=== PATIENT | male | born 1960 | race African-American/Black ===

== ENCOUNTER 2016-11-20 01:45 | Emergency (ER) | payer OTHER, MEDICAID ==
[~2016-11-20] VITALS: Ht 177.8 cm; Wt 81.6 kg
[2016-11-20 02:11] VITALS: BP 137/79
--- NOTE | 2016-11-20 02:26 | NUR ---
AMBULATED TO ER BED 4
--- NOTE | 2016-11-20 02:27 | NUR ---
Patient being evaluated by physician at bedside.
[2016-11-20] MEDS ORDERED: KETOROLAC 30 MG/ML VIAL IVP ONE (02:35)
[2016-11-20 02:53] LABS: BASOPHILS # (AUTO) 0.3 K/uL (0.00-0.22); BASOPHILS % (AUTO) 3.3 % (0.0-2.0); EOSINOPHILS # (AUTO) 0.2 K/uL (0-0.4); EOSINOPHILS % (AUTO) 2.9 % (0.0-4.0); HEMATOCRIT 41.8 % (36-52); HEMOGLOBIN 13.5 g/dL (12.0-18.0); LYMPHOCYTES # (AUTO) 1.9 K/uL (2.0-11.5); MEAN CORPUSCULAR HEMOGLOBIN 30 pg (27-31); MEAN CORPUSCULAR HGB CONC 32 g/dL (33-37); MEAN CORPUSCULAR VOLUME 93 fL (80-94); MONOCYTES # (AUTO) 1.3 K/uL (0.8-1.0); NEUTROPHILS # (AUTO) 4.3 K/uL (1.8-7.7); NEUTROPHILS % (AUTO) 53.3 % (42.2-75.2); PLATELET COUNT (AUTO) 174 K/uL (140-450); RED BLOOD CELL COUNT(AUTO) 4.51 MIL/uL (4.20-6.10); RED CELL DISTRIBUTION WIDTH 13.9 % (11.6-13.7)
[2016-11-20 02:53] LABS: APPEARANCE,URINE SL CLOUDY (CLEAR); BILIRUBIN,URINE NEGATIVE (NEGATIVE); COLOR,URINE YELLOW (YELLOW); LEUKOCYTE ESTERASE ,URINE NEGATIVE (NEGATIVE); NITRITE, URINE NEGATIVE (NEGATIVE); PROTEIN,URINE NEGATIVE (NEGATIVE); UGLUCOSE NEGATIVE (NEGATIVE); UROBILINOGEN,URINE 0.2 EU/dL (0.2 - 1)
--- NOTE | 2016-11-20 03:05 | NUR ---
PATIENT PRESENTS TO ED WITH LLQ ABD PAIN . PT STATES NOTHING HAS CHANGED ABOUT THE PAIN SINCE IT STARTED A MONTH AGO, AND THAT IS WHY HE DECIDED TO COME IN THIS MORNING . DENIES V/D; SKIN IS PINK/WARM/DRY; AAOX4 WITH EVEN AND STEADY GAIT; LUNGS CLEAR BL; HR EVEN AND REGULAR; PT DENIES ANY FEVER, CP, SOB, OR COUGH AT THIS TIME; PATIENT STATES PAIN OF 8/10 AT THIS TIME; VSS; PATIENT POSITIONED FOR COMFORT; HOB ELEVATED; BEDRAILS UP X2; BED DOWN. ER MD MADE AWARE OF PT STATUS.
[2016-11-20 03:09] LABS: BACTERIA,URINE None Seen /HPF (None Seen); BLOOD, URINE NEGATIVE (NEGATIVE); RBC,URINE 0-5 (RARE) /HPF (0-5); SQUAMOUS EPITHELIAL CELL,UR 0-3 (FEW) /LPF (0-3 (FEW)); WBC,URINE 0-5 (RARE) /HPF (0-5)
[2016-11-20 03:12] LABS: ALBUMIN 3.6 g/dL (3.4-5.0); CARBON DIOXIDE 30.6 mmol/L (21-32); CREATININE 1.2 mg/dL (0.6-1.3); TOTAL BILIRUBIN 0.8 mg/dL (0.0-1.0)
[2016-11-20 03:18] LABS: MONOCYTES % (AUTO) 16.5 % (1.7-9.3)
[2016-11-20 03:41] LABS: ANION GAP 8.9 (8-16); POTASSIUM 3.5 mmol/L (3.5-5.1)
--- NOTE | 2016-11-20 03:59 | NUR ---
PT TO CT
[2016-11-20 05:14] VITALS: BP 133/83
--- NOTE | 2016-11-20 05:14 | NUR ---
Patient discharged with v/s stable. Written and verbal after care instructions given and explained. Patient alert, oriented and verbalized understanding of instructions. Ambulatory with steady gait. All questions addressed prior to discharge. ID band removed. Patient advised to follow up with PMD. Rx of MOTRIN AND ZOFRAN given. Patient educated on indication of medication including possible reaction and side effects. Opportunity to ask questions provided and answered.
--- NOTE | 2016-11-20 05:14 | NUR ---
IV removed, catheter intact and site benign. Applied folded 4x4 gauze and tape to stop bleeding.
== END 2016-11-20 05:14 | disposition home or self-care (01) ==
LOC: MED 01:45
DX: G89.29 Other chronic pain (principal); R10.31 Right lower quadrant pain; F17.210 Nicotine dependence, cigarettes, uncomplicated; Z71.6 Tobacco abuse counseling; Z88.0 Allergy status to penicillin
CPT/HCPCS: 36415; 74176; 80053; 81001; 83690; 85025; 96374; 99285; J1885

== ENCOUNTER 2017-01-07 18:58 | Emergency (ER) | payer OTHER, MEDICAID ==
[~2017-01-07] VITALS: Ht 177.8 cm; Wt 82.1 kg
[2017-01-07 19:54] VITALS: BP 119/78
--- NOTE | 2017-01-07 20:58 | NUR ---
PT TAKEN TO FAST TRACK
--- NOTE | 2017-01-07 20:59 | NUR ---
PT BIB SELF C/O HEADACHES, BODY ACHES, FEVER, AND COUGH X 2 DAYS. DENIES ANY SOB AT THIS TIME. MED HX SEIZURES, HNT. EKG DONE, MEDS GIVEN ALL ORDER EXECUTEDPupils equal and reactive to light bilaterally. No facial droop noted. No smile deficit noted. Speech normal for patient. Patient is alert and oriented to person, place, time and event. Bilateral hand purse maker equal. Bilateral foot push equal.
--- NOTE | 2017-01-07 21:07 | NUR ---
PA EVALUATING PATIENT
[2017-01-07] MEDS ORDERED: ASPIRIN 325 MG TAB PO ONE (21:50)
--- NOTE | 2017-01-07 22:22 | NUR ---
Dr. Feliz evaluating patient at bedside.
[2017-01-07 22:43] VITALS: BP 111/76
--- NOTE | 2017-01-07 22:44 | NUR ---
Patient discharged with v/s stable. Written and verbal after care instructions given and explained. Patient alert, oriented and verbalized understanding of instructions. Ambulatory with steady gait. All questions addressed prior to discharge. ID band removed. Patient advised to follow up with PMD. Rx of XANAX 0.5MG given. Patient educated on indication of medication including possible reaction and side effects. Opportunity to ask questions provided and answered.
== END 2017-01-07 22:44 | disposition home or self-care (01) ==
LOC: MED 18:58
DX: F41.9 Anxiety disorder, unspecified (principal); Z88.0 Allergy status to penicillin

== ENCOUNTER 2018-08-11 20:32 | Emergency (ER) | payer OTHER, MEDICAID ==
[~2018-08-11] VITALS: Ht 172.7 cm; Wt 77.1 kg
[2018-08-11 20:39] VITALS: BP 137/79
--- NOTE | 2018-08-11 20:40 | NUR ---
TO BED # 8 AMBULATORY, REPORT GIVEN TO CHRIS CABELLO
--- NOTE | 2018-08-11 20:54 | NUR ---
Dr. Doty evaluating patient at bedside.
[2018-08-11] MEDS ORDERED: HYDROcodone/APAP 10/325 MG 1 TAB TAB PO ONE (21:05)
--- NOTE | 2018-08-11 21:16 | NUR ---
PT BIB SELF C/O RT TESTICULAR PAIN X1 WEEK. PT HAS BEEN SEEN BY PCP FOR SAME S/S W/ NO RELIEF. NO DRAINAGE OR SWELLING AT THIS TIME. PT LAYING IN BED, POSITIONED TO COMFORT.
[2018-08-11 21:48] LABS: APPEARANCE,URINE CLEAR (CLEAR); BILIRUBIN,URINE NEGATIVE (NEGATIVE); BLOOD, URINE NEGATIVE (NEGATIVE); COLOR,URINE YELLOW (YELLOW); LEUKOCYTE ESTERASE ,URINE NEGATIVE (NEGATIVE); NITRITE, URINE NEGATIVE (NEGATIVE); UGLUCOSE NEGATIVE (NEGATIVE)
--- NOTE | 2018-08-11 23:53 | NUR ---
Patient discharged with v/s stable. Written and verbal after care instructions given and explained. Patient alert, oriented and verbalized understanding of instructions. Ambulatory with steady gait. All questions addressed prior to discharge. ID band removed. Patient advised to follow up with PMD. Rx of doxycycline, ultram given. Patient educated on indication of medication including possible reaction and side effects. Opportunity to ask questions provided and answered. pt states daughter will be driving pt home.
[2018-08-11 23:54] VITALS: BP 145/76
== END 2018-08-11 23:53 | disposition home or self-care (01) ==
LOC: MED 20:32
DX: N45.1 Epididymitis (principal); I10 Essential (primary) hypertension; Z88.0 Allergy status to penicillin
CPT/HCPCS: 76870; 81003; 99284; Q0092

== ENCOUNTER 2018-11-19 12:31 | Emergency (ER) | payer OTHER, MEDICAID ==
[~2018-11-19] VITALS: Ht 177.8 cm; Wt 81.6 kg
[2018-11-19 12:45] VITALS: BP 138/83
--- NOTE | 2018-11-19 12:50 | NUR ---
C/O FACIAL PAIN AROUND EYES/FOREHEAD X4 DAYS AND TESTICULAR PAIN X 10 DAYS. STATES HE HAD A "KNOT" NEAR TESTICLE AND RECEIVED DOXYCYCLINE 1.5 MO. AGO. DENIES RECENT INJURY, VISION CHANGES, RECENT ILLNESS. SKIN IS WARM/DRY; AAOX4 WITH EVEN AND STEADY GAIT; LUNGS CLEAR BL; HR EVEN AND REGULAR; PT DENIES ANY FEVER, CP, SOB, OR COUGH AT THIS TIME; VSS; PATIENT POSITIONED FOR COMFORT; HOB ELEVATED; BEDRAILS UP X1; BED DOWN. ER MD MADE AWARE OF PT STATUS.
--- NOTE | 2018-11-19 13:01 | NUR ---
URINE COLLECTED AND SENT TO LAB
--- NOTE | 2018-11-19 13:31 | NUR ---
PT RESTING IN BED, NO NEW NEEDS AT THIS TIME
--- NOTE | 2018-11-19 13:34 | NUR ---
Dr. Hartmann evaluating patient at bedside.
[2018-11-19] MEDS ORDERED: KETOROLAC 60 MG/2 ML VIAL IM ONE (13:50)
[2018-11-19] MEDS ORDERED: cefTRIAXone 250 MG in LIDOCAINE MPF 1% - 5 mL VIAL 0.9 ML IM ONE (13:50)
[2018-11-19 14:05] LABS: APPEARANCE,URINE CLEAR (CLEAR); BILIRUBIN,URINE NEGATIVE (NEGATIVE); BLOOD, URINE NEGATIVE (NEGATIVE); COLOR,URINE YELLOW (YELLOW); LEUKOCYTE ESTERASE ,URINE NEGATIVE (NEGATIVE); NITRITE, URINE NEGATIVE (NEGATIVE); UGLUCOSE NEGATIVE (NEGATIVE)
--- NOTE | 2018-11-19 15:01 | NUR ---
pt asleep in bed
--- NOTE | 2018-11-19 16:28 | NUR ---
Dr. Hartmann re-evaluating patient at bedside.
[2018-11-19 16:36] VITALS: BP 136/80
--- NOTE | 2018-11-19 16:36 | NUR ---
Patient discharged with v/s stable. Written and verbal after care instructions given and explained. Patient alert, oriented and verbalized understanding of instructions. Ambulatory with steady gait. All questions addressed prior to discharge. ID band removed. Patient advised to follow up with PMD. Rx of DOXYCYCLINE, NAPROSYN given. Patient educated on indication of medication including possible reaction and side effects. Opportunity to ask questions provided and answered.
[2018-11-21 08:27] LABS: CHLAMYDIA TRACHOMATIS AMP DNA Negative (Negative)
== END 2018-11-19 16:36 | disposition home or self-care (01) ==
LOC: MED 12:31
DX: J34.89 Other specified disorders of nose and nasal sinuses (principal); I10 Essential (primary) hypertension; Z88.0 Allergy status to penicillin
CPT/HCPCS: 36415; 76870; 81003; 87086; 96372; 99284; J0696; J1885; J2001; Q0092; 87491

== ENCOUNTER 2019-02-01 21:46 | Emergency (ER) | payer OTHER, MEDICAID ==
[~2019-02-01] VITALS: Ht 177.8 cm; Wt 77.1 kg
[2019-02-01 21:55] VITALS: BP 121/70
--- NOTE | 2019-02-01 21:55 | NUR ---
TO BED # 12 AMBULATORY
--- NOTE | 2019-02-01 22:00 | NUR ---
58/M PRESENTS TO ED, C/O BURNING LUQ PAIN, RADIATING TO L BACK, X1 WEEK. PT REPORTS VOMITING YESTERDAY. DENIES FEVER, NAUSEA, CONSTIPATION OR DIARRHEA. AOX4, GCS 15, SKIN NORMAL WARM AND DRY, RR EVEN AND UNLABORED. LUNG SOUNDS CLEAR BL. HR EVEN AND REGULAR. BS ACTIVE X4, ABD SOFT ROUND TENDER TO LUQ AND BACK. DENIES MED HX; RX BENTYL AND LINACLOTIDE; OTC MOTRIN AND NAPROSYN WITH LITTLE RELIEF
[2019-02-01] MEDS ORDERED: NACL 0.9% 500 ML IV ONE (22:02)
[2019-02-01] MEDS ORDERED: KETOROLAC 30 MG/ML VIAL IVP ONE (22:05)
[2019-02-01] MEDS ORDERED: ONDANSETRON 4 MG/2 ML VIAL IVP ONE (22:05)
--- NOTE | 2019-02-01 22:12 | NUR ---
PT TAKEN TO CT
--- NOTE | 2019-02-01 22:22 | NUR ---
PT RETURN FROM CT
--- NOTE | 2019-02-01 22:31 | NUR ---
Dr. Feliz examining patient.
[2019-02-01 22:40] LABS: BASOPHILS % (AUTO) 0.7 % (0.0-2.0); EOSINOPHILS # (AUTO) 0.2 K/uL (0-0.4); EOSINOPHILS % (AUTO) 2.7 % (0.0-4.0); HEMATOCRIT 39.6 % (36-52); HEMOGLOBIN 13.1 g/dL (12.0-18.0); LYMPHOCYTES # (AUTO) 1.2 K/uL (2.0-11.5); LYMPHOCYTES % (AUTO) 21.1 % (20.5-51.1); MEAN CORPUSCULAR HEMOGLOBIN 31 pg (27-31); MEAN CORPUSCULAR HGB CONC 33 g/dL (33-37); MEAN CORPUSCULAR VOLUME 93.5 fL (80-94); MONOCYTES # (AUTO) 0.6 K/uL (0.8-1.0); MONOCYTES % (AUTO) 11.7 % (1.7-9.3); NEUTROPHILS # (AUTO) 3.5 K/uL (1.8-7.7); NEUTROPHILS % (AUTO) 63.8 % (42.2-75.2); PLATELET COUNT (AUTO) 192 K/uL (140-450); RED BLOOD CELL COUNT(AUTO) 4.23 MIL/uL (4.20-6.10); RED CELL DISTRIBUTION WIDTH 13.8 % (11.6-13.7); WHITE BLOOD COUNT (AUTO) 5.5 K/uL (4.8-10.8)
[2019-02-01 22:52] LABS: ANION GAP 10.4 (8-16); CARBON DIOXIDE 28.6 mmol/L (21-32); CREATININE 1.4 mg/dL (0.7-1.3)
[2019-02-01 22:59] LABS: ALBUMIN 3.6 g/dL (3.4-5.0); TOTAL BILIRUBIN 0.4 mg/dL (0.0-1.0)
--- NOTE | 2019-02-01 23:59 | NUR ---
IV removed, catheter intact and site benign. Applied folded 4x4 gauze and tape to stop bleeding.
[2019-02-02] VITALS: BP 115/72
--- NOTE | 2019-02-02 | NUR ---
Patient discharged with v/s stable. Written and verbal after care instructions given and explained. Patient alert, oriented and verbalized understanding of instructions. Ambulatory with steady gait. All questions addressed prior to discharge. ID band removed. Patient advised to follow up with PMD. Rx of Mineral Oil given. Patient educated on indication of medication including possible reaction and side effects. Opportunity to ask questions provided and answered.
== END 2019-02-02 | disposition home or self-care (01) ==
LOC: MED 21:46
DX: R10.12 Left upper quadrant pain (principal); R11.10 Vomiting, unspecified; I10 Essential (primary) hypertension; Z86.69 Personal history of other diseases of the nervous system and sense organs; Z88.0 Allergy status to penicillin
CPT/HCPCS: 36415; 74176; 80053; 85025; 96361; 96374; 96375; 99284; J1885; J2405; J7030

== ENCOUNTER 2019-07-30 01:07 | Emergency (ER) | payer OTHER, MEDICAID ==
[~2019-07-30] VITALS: Ht 180.3 cm; Wt 81.0 kg
[2019-07-30 01:10] VITALS: BP 133/72
--- NOTE | 2019-07-30 01:15 | NUR ---
58 Y/O C/O UPPER AND LOWER LEFT SIDE ABD PAIN X 2 DAYS WITH NVD. REPORTS SIMILAR PAIN IN THE PAST. TAKES MEDICATION FOR STOMACH BUT CANNOT REMEMBER WHAT THEY ARE CALLED. REPORTS BLOOD IN STOOL YESTERDAY. ABDOMEN SOFT AND FLAT. ABDOMINAL SOUNDS HEARD ON ALL FOUR QUADRANTS. PAIN UPON PALPATION ON THE LUQ/LLQ. PAIN IS A 8/10 ACUTE PAIN. +N/V. ERMD MADE AWARE OF STATUS. SIDE RAILSX1. WILL CONTINUE TO MONITOR. PMH-- STOMACH ISSUES RX-- UNABLE TO PROVIDE ALLERGIES: PENICILLIN
--- NOTE | 2019-07-30 01:29 | NUR ---
ERMD EVALUATING PATIENT AT THIS TIME.
[2019-07-30] MEDS ORDERED: KETOROLAC 60 MG/2 ML VIAL IM ONE (01:35)
[2019-07-30 02:02] VITALS: BP 133/72
--- NOTE | 2019-07-30 02:02 | NUR ---
Patient discharged with v/s stable. Written and verbal after care instructions given and explained. Patient alert, oriented and verbalized understanding of instructions. Ambulatory with steady gait. All questions addressed prior to discharge. ID band removed. Patient advised to follow up with PMD. Rx of IMODIUM; ZOFRAN; NORCO given. Patient educated on indication of medication including possible reaction and side effects. Opportunity to ask questions provided and answered.
== END 2019-07-30 02:02 | disposition home or self-care (01) ==
LOC: MED 01:07
DX: R10.9 Unspecified abdominal pain (principal); R11.2 Nausea with vomiting, unspecified; R19.7 Diarrhea, unspecified; Z88.0 Allergy status to penicillin
CPT/HCPCS: 96372; 99283; J1885

== ENCOUNTER 2019-08-14 16:50 | Emergency (ER) | payer OTHER, MEDICAID ==
[~2019-08-14] VITALS: Ht 177.8 cm; Wt 81.6 kg
[2019-08-14 17:10] VITALS: BP 119/70
--- NOTE | 2019-08-14 17:13 | NUR ---
TO LOBBY A/W BED AMBULATORY
--- NOTE | 2019-08-14 19:43 | NUR ---
PT AMBULATED TO ER BED 03
--- NOTE | 2019-08-14 19:44 | NUR ---
58 Y/O M C/O RIGHT FLANK PAIN X3 DAYS WITH NAUSEA. PT DENIES, FEVER/VOMITING/DIAHREA. PT STATES HE TOOK IBPROFEN AND NORCO AT HOME, HAST NOT HELPED THE PAIN. UA COLLECTED IS CLEAR. PT STATES THE PAIN IS CONSTANT, HE DENIES PAINFUL URINATION OR DIFFICULTY URINATING. PT POSITIONED FOR COMFORT, PLACED IN A GOWN, BED LOWERED, SIDE RAIL X1 IN PLACE. ALLERGIES: PENICILLINS
--- NOTE | 2019-08-14 20:10 | NUR ---
PT TAKEN TO CT BY WHEELCHAIR.
--- NOTE | 2019-08-14 20:31 | NUR ---
PT RETURNED FROM CT
--- NOTE | 2019-08-14 21:05 | NUR ---
REPORT GIVEN TO DESTINEY WALDROP. TRANSFER OF CARE.
[2019-08-14] MEDS ORDERED: MORPHINE SULFATE 2 MG/ML SYR IM ONE (22:20)
--- NOTE | 2019-08-14 22:53 | NUR ---
PT DISCHARGED WITH PAPERWORK. EDUCATED PT REGARDING MEDICATION AND D/C DIAGNOSIS. PT VERBALIZED UNDERSTANDING. TOLD PT TO FOLLOW UP WITH PCP AND WHEN TO RETURN TO ED. PT AT STABLE CONDITION. ALL QUESTIONS ANSWERED.
[2019-08-14 22:54] VITALS: BP 123/66
== END 2019-08-14 22:53 | disposition home or self-care (01) ==
LOC: MED 16:50
DX: N23 Unspecified renal colic (principal); I10 Essential (primary) hypertension; Z86.69 Personal history of other diseases of the nervous system and sense organs; Z88.0 Allergy status to penicillin
CPT/HCPCS: 71250; 74150; 81002; 96372; 99284; J2270

== ENCOUNTER 2019-09-28 20:03 | Emergency (ER) | payer OTHER, MEDICAID ==
[~2019-09-28] VITALS: Ht 177.8 cm; Wt 81.6 kg
[2019-09-28 20:10] VITALS: BP 144/74
--- NOTE | 2019-09-28 20:13 | NUR ---
TO LOBBY A/W BED AMBULATORY
--- NOTE | 2019-09-28 20:40 | NUR ---
PT AMBULATED TO [facility] WITH CANE ASSIST.
--- NOTE | 2019-09-28 20:45 | NUR ---
SEEN BY PCP X3 WEEKS AGO FOR RIGHT HIP PAIN RADIATING DOWN TO RIGHT LOWER LEG. WORSE IN HIP. 8/10 PAIN. GIVEN IBUPROFEN FOR PAIN WITHOUT RELIEF. NO PAST MEDICAL HX. NO TRAUMA TO RIGHT HIP, LOWER BACK, OR LEG. PT USING CANE TO AMBULATE D/T PAIN. AMBULATED TO [facility] WITH CANE. VSS. ER AWARE. CONTINUE TO MONITOR.
[2019-09-28] MEDS ORDERED: KETOROLAC 60 MG/2 ML VIAL IM ONE (21:40)
[2019-09-28] MEDS ORDERED: HYDROcodone/APAP 7.5/325 MG 1 TAB PO ONE (21:40)
[2019-09-28] MEDS ORDERED: ONDANSETRON 4 MG ODT PO ONE (21:40)
--- NOTE | 2019-09-28 22:22 | NUR ---
PT REQUESTED TO WAIT ON TORADOL MEDICATION. ERMD NOTIFIED.
--- NOTE | 2019-09-28 22:32 | NUR ---
58 Y/O MALE C/O RIGHT LEG PAIN, DENIES INJURY/ILLNESS. PAIN HAS BEEN ON/OFF FOR 3 WEEKS BUT HAS BEEN GETTING WORSE, TODAY WAS INTOLERABLE. DENIES ANY SOB/ CP. NO DEFORMITY NOTED. RESP EVEN AND UNLABORED. BOWEL SOUNDS NORMO ACTIVE IN ALL QUADRANTS. CAP REFILL <3, AAOX4. ALLERGIES: PENICILLINS
[2019-09-28 23:49] VITALS: BP 132/86
--- NOTE | 2019-09-28 23:49 | NUR ---
Patient discharged with v/s stable. Pt states pain decreased to 2/10. Provided CD of immaging with DC instructions. Written and verbal after care instructions given and explained. Patient alert, oriented and verbalized understanding of instructions. Ambulatory with steady gait with patrick assistance. All questions addressed prior to discharge. ID band removed. Patient advised to follow up with PMD and when to return to ER. Rx of Ibuprofen, Mederol dose pack, norco, and lotrimine given. Patient educated on indication of medication including possible reaction and side effects. Opportunity to ask questions provided and answered.
== END 2019-09-28 23:49 | disposition home or self-care (01) ==
LOC: MED 20:03
DX: S39.012A Strain of muscle, fascia and tendon of lower back, initial encounter (principal); M54.16 Radiculopathy, lumbar region; I10 Essential (primary) hypertension; Z88.0 Allergy status to penicillin; X58.XXXA Exposure to other specified factors, initial encounter; Y93.89 Activity, other specified; Y92.89 Other specified places as the place of occurrence of the external cause; Y99.8 Other external cause status
CPT/HCPCS: 72100; 96372; 99283; J1885; Q0092; Q0162

== ENCOUNTER 2019-12-16 19:08 | Emergency (ER) | payer OTHER, MEDICAID ==
[~2019-12-16] VITALS: Ht 172.7 cm; Wt 81.6 kg
[2019-12-16 19:14] VITALS: BP 122/82
--- NOTE | 2019-12-16 19:30 | NUR ---
PT AMBULATED TO BED #11
--- NOTE | 2019-12-16 19:30 | NUR ---
NEGATIVE COVID SCREEN. PT WEARING MASK.
[2019-12-16] MEDS ORDERED: KETOROLAC 15 MG/ML VIAL IVP ONE (19:35)
[2019-12-16] MEDS ORDERED: ACETAMINOPHEN 650 MG/20.3 ML UDC PO ONE (19:35)
[2019-12-16] MEDS ORDERED: NACL 0.9% 1,000 ML IV ONE (19:35)
--- NOTE | 2019-12-16 19:35 | NUR ---
58 YO M BIB SELF FOR C/C OF 8/10 RIGHT CHEST PAIN THAT RADIATES TO RIGHT SIDE OF BODY AND LEFT NECK. PT STATES THE PAIN BEGAN THIS MORNING AND HE HASNT EXPERIENCED THIS BEFORE. PT DENIES TAKING ANY MEDICATION FOR PAIN RELIEF. S1S2 HEARD, LUNG SOUNDS CLEAR THROUGHOUT, EQUAL CHEST RISE AND FALL, CAP REFILL <3, NO EDEMA NOTED. PERIPHERAL PULSES REGULAR IN ALL EXTREMETIES. PT PLACED ON GAS WELDER. BED LOCKED AND IN LOWEST POSITION. SIDE RAILS X1. MED HX: ANXIETY NO RX ALLERGIES TO PENICILLIN
--- NOTE | 2019-12-16 19:52 | NUR ---
BLOOD DRAWN AND TAKEN TO LAB.
[2019-12-16] MEDS ORDERED: ACETAMINOPHEN 325 MG TAB PO ONE (19:55)
--- NOTE | 2019-12-16 19:55 | NUR ---
RAD AT BEDSIDE.
[2019-12-16 19:58] LABS: BASOPHILS % (AUTO) 0.5 % (0.0-2.0); EOSINOPHILS # (AUTO) 0.1 K/uL (0-0.4); EOSINOPHILS % (AUTO) 1.7 % (0.0-4.0); HEMATOCRIT 40.1 % (36-52); HEMOGLOBIN 13.1 g/dL (12.0-18.0); LYMPHOCYTES # (AUTO) 1.1 K/uL (2.0-11.5); LYMPHOCYTES % (AUTO) 20.3 % (20.5-51.1); MEAN CORPUSCULAR HEMOGLOBIN 31 pg (27-31); MEAN CORPUSCULAR HGB CONC 33 g/dL (33-37); MEAN CORPUSCULAR VOLUME 96.2 fL (80-94); MONOCYTES # (AUTO) 0.7 K/uL (0.8-1.0); MONOCYTES % (AUTO) 13.3 % (1.7-9.3); NEUTROPHILS # (AUTO) 3.5 K/uL (1.8-7.7); NEUTROPHILS % (AUTO) 64.2 % (42.2-75.2); PLATELET COUNT (AUTO) 175 K/uL (140-450); RED BLOOD CELL COUNT(AUTO) 4.17 MIL/uL (4.20-6.10); RED CELL DISTRIBUTION WIDTH 13.5 % (11.6-13.7); WHITE BLOOD COUNT (AUTO) 5.4 K/uL (4.8-10.8)
[2019-12-16 20:22] LABS: ALBUMIN 3.6 g/dL (3.4-5.0); ANION GAP 9.7 (8-16); CARBON DIOXIDE 30.1 mmol/L (21-32); CREATININE 1.5 mg/dL (0.6-1.3); POTASSIUM 3.8 mmol/L (3.5-5.1); TOTAL BILIRUBIN 0.5 mg/dL (0.0-1.0)
--- NOTE | 2019-12-16 20:42 | NUR ---
PT RESTING IN BED. SIDE RAILS X1.
[2019-12-16] MEDS ORDERED: CYCLOBENZAPRINE 10 MG TAB PO ONE (20:45)
[2019-12-16] MEDS ORDERED: traMADol 50 MG TAB PO ONE (20:45)
--- NOTE | 2019-12-16 20:56 | NUR ---
PT REFUSED FLEXERIL ORDER DUE TO BEING WORRIED ABOUT BEING TOO DROWSY TO DRIVE HOME. TRAMADOL ADMINISTERED ONLY. ERMD MADE AWARE.
[2019-12-16 21:15] VITALS: BP 141/83
--- NOTE | 2019-12-16 21:15 | NUR ---
Patient discharged with v/s stable. Written and verbal after care instructions given and explained. Patient alert, oriented and verbalized understanding of instructions. Ambulatory with steady gait. All questions addressed prior to discharge. ID band removed. Patient advised to follow up with PMD. Rx of ULTRAM, FLEXERIL given. Patient educated on indication of medication including possible reaction and side effects. Opportunity to ask questions provided and answered.
== END 2019-12-16 21:15 | disposition home or self-care (01) ==
LOC: MED 19:08
DX: R07.89 Other chest pain (principal); R56.9 Unspecified convulsions; M54.2 Cervicalgia; I10 Essential (primary) hypertension; Z88.0 Allergy status to penicillin
CPT/HCPCS: 36415; 71045; 80053; 84484; 85025; 96374; 99284; J1885; J7030; Q0092

== ENCOUNTER 2020-04-07 19:26 | Emergency (ER) | payer OTHER, MEDICAID ==
[~2020-04-07] VITALS: Ht 177.8 cm; Wt 79.4 kg
[2020-04-07 19:31] VITALS: BP 150/80
--- NOTE | 2020-04-07 19:35 | NUR ---
AMBULATED TO BED 5
--- NOTE | 2020-04-07 19:38 | NUR ---
59 year old male coming in for rt sided neck pain that is radiating to occipital region of the head x 1 day. states no other s/sx. no trauma or injury noted. states taken ibuprofen and cyclobenzaprine with no relief x 4 hours. awaiting MSE. pmhx: denies allx to n
[2020-04-07 19:40] VITALS: BP 142/68
--- NOTE | 2020-04-07 19:58 | NUR ---
Dr. Liang at bedside evaluating pt
[2020-04-07] MEDS ORDERED: NACL 0.9% 1,000 ML IV ONE (20:00)
[2020-04-07] MEDS ORDERED: KETOROLAC 15 MG/ML VIAL IVP ONE (20:00)
[2020-04-07] MEDS ORDERED: MORPHINE SULFATE 4 MG/ML SYR IVP ONE (20:00)
[2020-04-07] MEDS ORDERED: LIDOCAINE 2% 1000 MG/50 ML VIAL INJ ONE (20:15)
--- NOTE | 2020-04-07 22:11 | NUR ---
Patient discharged with v/s stable. Written and verbal after care instructions given and explained. Patient alert, oriented and verbalized understanding of instructions. Ambulatory with steady gait. All questions addressed prior to discharge. ID band removed. Patient advised to follow up with PMD. Rx of norco,naprosyn given. Patient educated on indication of medication including possible reaction and side effects. Opportunity to ask questions provided and answered.
== END 2020-04-07 22:12 | disposition home or self-care (01) ==
LOC: MED 19:26
DX: S13.8XXA Sprain of joints and ligaments of other parts of neck, initial encounter (principal); I10 Essential (primary) hypertension; Z88.0 Allergy status to penicillin; X58.XXXA Exposure to other specified factors, initial encounter; Y93.9 Activity, unspecified; Y92.89 Other specified places as the place of occurrence of the external cause; Y99.8 Other external cause status
CPT/HCPCS: 20552; 96361; 96374; 96375; 99284; J1885; J2001; J2270; J7030

== ENCOUNTER 2020-05-15 19:08 | Emergency (ER) | payer OTHER, MEDICAID ==
[~2020-05-15] VITALS: Ht 177.8 cm; Wt 81.2 kg
[2020-05-15 19:15] VITALS: BP 130/88
[2020-05-15] MEDS ORDERED: HYDROcodone/APAP 5/325 MG 1 TAB TAB PO ONE (19:40)
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
--- NOTE | 2020-05-15 20:06 | NUR ---
PT TAKEN TO XRAY
--- NOTE | 2020-05-15 20:16 | NUR ---
PT RETURNED TO BED
--- NOTE | 2020-05-15 20:58 | NUR ---
ERMD AT BEDSIDE
[2020-05-15 21:28] VITALS: BP 130/88
--- NOTE | 2020-05-15 21:28 | NUR ---
Patient discharged with v/s stable. Written and verbal after care instructions given and explained. Patient alert, oriented and verbalized understanding of instructions. Ambulatory with steady gait. All questions addressed prior to discharge. ID band removed. Patient advised to follow up with PMD. Rx of TYLENOL #3 given. Patient educated on indication of medication including possible reaction and side effects. Opportunity to ask questions provided and answered.
== END 2020-05-15 21:28 | disposition home or self-care (01) ==
LOC: MED 19:08
DX: M54.41 Lumbago with sciatica, right side (principal); I10 Essential (primary) hypertension; Z88.0 Allergy status to penicillin; Z98.890 Other specified postprocedural states
CPT/HCPCS: 71101; 99283

== ENCOUNTER 2020-05-28 08:44 | Emergency (ER) | payer OTHER, MEDICAID ==
[~2020-05-28] VITALS: Ht 177.8 cm; Wt 78.0 kg
[2020-05-28 08:49] VITALS: BP 139/62
[2020-05-28] MEDS: MORPHINE SULFATE 4 MG/ML SYR IVP ONE (09:23)
[2020-05-28] MEDS: NACL 0.9% 1,000 ML IV ONE (09:23)
[2020-05-28] MEDS: ONDANSETRON 4 MG/2 ML VIAL IVP ONE (09:24)
[2020-05-28 09:26] LABS: EOSINOPHILS # (AUTO) 0.1 K/uL (0-0.4); HEMATOCRIT 40.9 % (36-52); HEMOGLOBIN 13.4 g/dL (12.0-18.0); LYMPHOCYTES # (AUTO) 1.1 K/uL (2.0-11.5); LYMPHOCYTES % (AUTO) 22.7 % (20.5-51.1); MEAN CORPUSCULAR HEMOGLOBIN 31 pg (27-31); MEAN CORPUSCULAR HGB CONC 33 g/dL (33-37); MEAN CORPUSCULAR VOLUME 94.9 fL (80-94); MONOCYTES # (AUTO) 0.6 K/uL (0.8-1.0); MONOCYTES % (AUTO) 12.7 % (1.7-9.3); NEUTROPHILS # (AUTO) 3.1 K/uL (1.8-7.7); NEUTROPHILS % (AUTO) 62.6 % (42.2-75.2); PLATELET COUNT (AUTO) 180 K/uL (140-450); RED BLOOD CELL COUNT(AUTO) 4.31 MIL/uL (4.20-6.10); RED CELL DISTRIBUTION WIDTH 13.8 % (11.6-13.7)
[2020-05-28 09:41] LABS: ALBUMIN 3.9 g/dL (3.4-5.0); ANION GAP 11.7 (8-16); CARBON DIOXIDE 29.4 mmol/L (21-32); CREATININE 1.3 mg/dL (0.6-1.3); POTASSIUM 4.1 mmol/L (3.5-5.1); TOTAL BILIRUBIN 0.6 mg/dL (0.0-1.0)
[2020-05-28 10:27] VITALS: BP 139/62
== END 2020-05-28 10:27 | disposition home or self-care (01) ==
LOC: MED 08:44
DX: R10.9 Unspecified abdominal pain (principal); M25.551 Pain in right hip; K52.9 Noninfective gastroenteritis and colitis, unspecified; Z88.0 Allergy status to penicillin
CPT/HCPCS: 36415; 73502; 74176; 80053; 81002; 83690; 85025; 96361; 96374; 96375; 99285; J2270; J2405; J7030

== ENCOUNTER 2020-07-05 16:53 | Emergency (ER) | payer OTHER, MEDICAID ==
[~2020-07-05] VITALS: Ht 177.8 cm; Wt 81.6 kg
[2020-07-05 16:57] VITALS: BP 129/78
[2020-07-05 18:10] LABS: BASOPHILS % (AUTO) 0.4 % (0.0-2.0); EOSINOPHILS % (AUTO) 0.7 % (0.0-4.0); HEMATOCRIT 41.5 % (36-52); HEMOGLOBIN 13.5 g/dL (12.0-18.0); LYMPHOCYTES # (AUTO) 1.2 K/uL (2.0-11.5); LYMPHOCYTES % (AUTO) 15.5 % (20.5-51.1); MEAN CORPUSCULAR HEMOGLOBIN 31 pg (27-31); MEAN CORPUSCULAR HGB CONC 33 g/dL (33-37); MEAN CORPUSCULAR VOLUME 95.4 fL (80-94); MONOCYTES # (AUTO) 0.8 K/uL (0.8-1.0); MONOCYTES % (AUTO) 10.9 % (1.7-9.3); NEUTROPHILS # (AUTO) 5.4 K/uL (1.8-7.7); NEUTROPHILS % (AUTO) 72.5 % (42.2-75.2); PLATELET COUNT (AUTO) 201 K/uL (140-450); RED BLOOD CELL COUNT(AUTO) 4.35 MIL/uL (4.20-6.10); RED CELL DISTRIBUTION WIDTH 13.7 % (11.6-13.7); WHITE BLOOD COUNT (AUTO) 7.5 K/uL (4.8-10.8)
[2020-07-05 18:21] LABS: ALBUMIN 3.5 g/dL (3.4-5.0); ANION GAP 9.3 (8-16); CARBON DIOXIDE 30.8 mmol/L (21-32); CREATININE 1.3 mg/dL (0.6-1.3); POTASSIUM 4.1 mmol/L (3.5-5.1); TOTAL BILIRUBIN 0.6 mg/dL (0.0-1.0)
--- NOTE | 2020-07-05 19:15 | NUR ---
REPORT RECEIVED FROM DESTINEY EUBANKS FOR CONTINUATION OF CARE.
[2020-07-05 19:40] VITALS: BP 123/75
== END 2020-07-05 19:40 | disposition home or self-care (01) ==
LOC: MED 16:53
DX: R07.89 Other chest pain (principal); M25.551 Pain in right hip; R05 Cough
CPT/HCPCS: 36415; 71045; 80053; 83690; 83880; 84484; 85025; 93005; 99283

== ENCOUNTER 2020-12-17 16:58 | Emergency (ER) | payer OTHER, MEDICAID ==
[~2020-12-17] VITALS: Ht 177.8 cm; Wt 83.9 kg
[2020-12-17 17:00] VITALS: BP 129/77
--- NOTE | 2020-12-17 17:20 | NUR ---
AOX4. C/O LUQ ABDOMINAL PAIN X 1 WEEK AND C/O DIARRHEA X 2 DAYS. NO N/V. NO SOB, ON ROOM AIR, AMBULATORY CONTINENT B/B. NO PMH
[2020-12-17] MEDS ORDERED: NACL 0.9% 1,000 ML IV ONE (17:45)
[2020-12-17] MEDS ORDERED: MORPHINE SULFATE 4 MG/ML SYR IVP ONE ×2 (17:45→22:00)
[2020-12-17 17:48] LABS: BASOPHILS # (AUTO) 0.1 K/uL (0.00-0.22); BASOPHILS % (AUTO) 2.1 % (0.0-2.0); EOSINOPHILS # (AUTO) 0.1 K/uL (0-0.4); HEMATOCRIT 42.1 % (36-52); HEMOGLOBIN 13.8 g/dL (12.0-18.0); LYMPHOCYTES # (AUTO) 1.1 K/uL (2.0-11.5); LYMPHOCYTES % (AUTO) 18.6 % (20.5-51.1); MEAN CORPUSCULAR HEMOGLOBIN 31 pg (27-31); MEAN CORPUSCULAR HGB CONC 33 g/dL (33-37); MEAN CORPUSCULAR VOLUME 94.8 fL (80-94); MONOCYTES # (AUTO) 0.7 K/uL (0.8-1.0); MONOCYTES % (AUTO) 11.4 % (1.7-9.3); NEUTROPHILS # (AUTO) 3.9 K/uL (1.8-7.7); NEUTROPHILS % (AUTO) 66.9 % (42.2-75.2); PLATELET COUNT (AUTO) 187 K/uL (140-450); RED BLOOD CELL COUNT(AUTO) 4.44 MIL/uL (4.20-6.10); RED CELL DISTRIBUTION WIDTH 14.3 % (11.6-13.7); WHITE BLOOD COUNT (AUTO) 5.8 K/uL (4.8-10.8)
[2020-12-17] MEDS ORDERED: ONDANSETRON 4 MG/2 ML VIAL IVP ONE (17:50)
[2020-12-17 18:17] LABS: ALBUMIN 3.9 g/dL (3.4-5.0); ANION GAP 10.8 (8-16); CREATININE 1.4 mg/dL (0.6-1.3); POTASSIUM 3.8 mmol/L (3.5-5.1); TOTAL BILIRUBIN 0.8 mg/dL (0.0-1.0)
[2020-12-17] MEDS ORDERED: cefTRIAXone 1,000 MG in LIDOCAINE MPF 1% 2.1 ML IM ONE (18:30)
[2020-12-17] MEDS ORDERED: metroNIDAZOLE 500 MG/NS PREMIX 100 ML IV ONE (18:30)
[2020-12-17] MEDS ORDERED: LIDOCAINE MPF 1% 5 ML ONE (18:41)
[2020-12-17] MEDS ORDERED: cefTRIAXone 1,000 MG VIAL ONE (18:41)
--- NOTE | 2020-12-17 19:18 | NUR ---
Received report from DESTINEY Laguerre for continuation of care.
[2020-12-17] MEDS ORDERED: ALUMINUM HYD/MAG/SIMETHICONE 30 ML UDC PO ONE (20:10)
--- NOTE | 2020-12-17 20:11 | NUR ---
pt ambulated to the bathroom
--- NOTE | 2020-12-17 20:15 | NUR ---
CALL RECEIVED FROM [facility] FOR REPORT ON PT, TALKED TO LINDSAY
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
--- NOTE | 2020-12-17 22:01 | NUR ---
Attempted to call report to [facility]. Said they would call back
--- NOTE | 2020-12-17 22:08 | NUR ---
[facility] AT BEDSIDE
--- NOTE | 2020-12-17 22:17 | NUR ---
PT TAKEN BY [facility] TO [facility] ROOM [id number]
[2020-12-17 22:20] VITALS: BP 142/89
--- NOTE | 2020-12-17 22:20 | NUR ---
Patient to be transferred to [facility]. Is being transferred due to insurance issues. Receiving facility has accepting physician and available space. ER physician has signed transfer form. Patient or responsible green party has agreed to transfer and signed form. Patient belongings inventoried and will be sent with patient. Copy of nursing notes, lab reports, EKG, Physicians Orders and X-rays to be sent with patient. Report called to Gregor at receiving facility. [facility] ambulance service has been called for transfer. ETA is 30 minutes.
--- NOTE | 2020-12-20 02:35 | NUR ---
LATE ENTRY- NORMAL SALINE 0.9% DISCONTINUED AT 1900
--- NOTE | 2020-12-20 02:39 | NUR ---
LATE ENTRY- FLAGYL DISCONTINUED AT 2000
== END 2020-12-17 22:17 | disposition short-term general hospital (02) ==
LOC: MED 16:58 → EDBEDREQSVC 19:12 → MED 22:17
DX: K31.4 Gastric diverticulum (principal); Z88.0 Allergy status to penicillin; Z20.822 Contact with and (suspected) exposure to COVID-19
CPT/HCPCS: 36415; 74176; 80053; 83690; 85025; 87426; 96361; 96365; 96372; 96375; 96376; 99285; J0696; J2001; J2270; J2405; J3490; J7030

== ENCOUNTER 2021-04-26 22:15 | Emergency (ER) | payer OTHER, MEDICAID ==
[~2021-04-26] VITALS: Ht 175.3 cm; Wt 81.6 kg
[2021-04-26 22:36] VITALS: BP 146/93
[2021-04-26] MEDS ORDERED: ACETAMINOPHEN EXTRA STRENGTH 500 MG TAB PO ONE (23:00)
[2021-04-27] MEDS ORDERED: ACETAMINOPHEN EXTRA STRENGTH 500 MG TAB ONE (00:05)
--- NOTE | 2021-04-27 00:12 | NUR ---
PT RETURN FROM XRAY
--- NOTE | 2021-04-27 00:25 | NUR ---
PT AMBULATED TO ER BED 5
--- NOTE | 2021-04-27 00:35 | NUR ---
COVERING PRIMARY RN FOR LUNCH RELIEF. SEE COMPLETE ASSESSMENT
--- NOTE | 2021-04-27 01:06 | NUR ---
PT CURRENTLY RESTING IN BED, EYES CLOSED. NO NOTED DISTRESS AT THIS TIME. WILL CONTINUE TO MONITOR.
[2021-04-27] MEDS ORDERED: LIDO4CRE18 TP (02:37)
[2021-04-27 02:48] VITALS: BP 117/69
--- NOTE | 2021-04-27 02:48 | NUR ---
Patient discharged with v/s stable. Written and verbal after care instructions given and explained. Patient alert, oriented and verbalized understanding of instructions. Ambulatory with steady gait. All questions addressed prior to discharge. ID band removed. Patient advised to follow up with PMD. PER MD VALLADARES Rx of LIDOCAINE AND MOTRIN given VIA ELECTRONICALLY. Patient educated on indication of medication including possible reaction and side effects. Opportunity to ask questions provided and answered.
[2021-04-27] MEDS ORDERED: IBUP-2213 PO (02:49)
== END 2021-04-27 02:48 | disposition home or self-care (01) ==
LOC: MED 22:15
DX: M25.512 Pain in left shoulder (principal); R07.81 Pleurodynia; Z88.0 Allergy status to penicillin; W19.XXXA Unspecified fall, initial encounter; Y93.89 Activity, other specified; Y92.89 Other specified places as the place of occurrence of the external cause; Y99.8 Other external cause status
CPT/HCPCS: 71111; 73030; 99284

== ENCOUNTER 2021-04-29 13:37 | Emergency (ER) | payer OTHER, MEDICAID ==
[~2021-04-29] VITALS: Ht 177.8 cm; Wt 81.6 kg
[~2021-04-29 13:37] MED LIST: IBUP-2213 PO; LIDO4CRE18 TP
[2021-04-29 13:42] VITALS: BP 147/79
--- NOTE | 2021-04-29 13:47 | NUR ---
PT SENT TO LOBBY TO WAIT FOR AVAILABLE BED OR MSE.
[2021-04-29] MEDS ORDERED: HYDROcodone/APAP 5/325 MG 1 TAB TAB PO ONE (14:25)
--- NOTE | 2021-04-29 15:04 | NUR ---
LABS DRAWN VIA BROOKE PUNCTURE, GIVEN TO PHLEB.
[2021-04-29 15:17] LABS: BASOPHILS # (AUTO) 0.1 K/uL (0.00-0.22); BASOPHILS % (AUTO) 1.3 % (0.0-2.0); EOSINOPHILS # (AUTO) 0.1 K/uL (0-0.4); EOSINOPHILS % (AUTO) 2.3 % (0.0-4.0); HEMATOCRIT 41.6 % (36-52); HEMOGLOBIN 13.6 g/dL (12.0-18.0); LYMPHOCYTES % (AUTO) 23.6 % (20.5-51.1); MEAN CORPUSCULAR HEMOGLOBIN 31 pg (27-31); MEAN CORPUSCULAR HGB CONC 33 g/dL (33-37); MEAN CORPUSCULAR VOLUME 94.9 fL (80-94); MONOCYTES # (AUTO) 0.6 K/uL (0.8-1.0); MONOCYTES % (AUTO) 14.6 % (1.7-9.3); NEUTROPHILS # (AUTO) 2.6 K/uL (1.8-7.7); NEUTROPHILS % (AUTO) 58.2 % (42.2-75.2); PLATELET COUNT (AUTO) 200 K/uL (140-450); RED BLOOD CELL COUNT(AUTO) 4.38 MIL/uL (4.20-6.10); RED CELL DISTRIBUTION WIDTH 13.8 % (11.6-13.7); WHITE BLOOD COUNT (AUTO) 4.4 K/uL (4.8-10.8)
[2021-04-29] MEDS ORDERED: IMO2 PO (15:38)
[2021-04-29] MEDS ORDERED: ONDA4TAB PO (15:38)
[2021-04-29 15:42] LABS: ALBUMIN 3.8 g/dL (3.4-5.0); ANION GAP 9.5 (8-16); CARBON DIOXIDE 32.7 mmol/L (21-32); CREATININE 1.4 mg/dL (0.6-1.3); POTASSIUM 4.2 mmol/L (3.5-5.1); TOTAL BILIRUBIN 0.4 mg/dL (0.0-1.0)
[2021-04-29 16:11] VITALS: BP 135/80
--- NOTE | 2021-04-29 16:11 | NUR ---
Patient discharged with v/s stable. Written and verbal after care instructions given and explained. Patient alert, oriented and verbalized understanding of instructions. Ambulatory with steady gait. All questions addressed prior to discharge. ID band removed. Patient advised to follow up with PMD. Rx of Loperamide and Ondansetron given. Patient educated on indication of medication including possible reaction and side effects. Opportunity to ask questions provided and answered.
== END 2021-04-29 16:11 | disposition home or self-care (01) ==
LOC: MED 13:37
DX: R11.2 Nausea with vomiting, unspecified (principal); R10.32 Left lower quadrant pain; R19.7 Diarrhea, unspecified; Z88.0 Allergy status to penicillin
CPT/HCPCS: 36415; 80053; 81002; 83690; 85025; 99284

== ENCOUNTER 2021-05-27 20:18 | Emergency (ER) | payer OTHER, MEDICAID ==
[~2021-05-27] VITALS: Ht 177.8 cm; Wt 81.6 kg
[~2021-05-27 20:18] MED LIST changes: +IMO2 PO; +ONDA4TAB PO
[2021-05-27 20:57] VITALS: BP 141/79
[2021-05-27] MEDS ORDERED: HYDROcodone/APAP 5/325 MG 1 TAB TAB PO ONE (21:25)
--- NOTE | 2021-05-27 21:43 | NUR ---
ASSUMED CARE OF PATIENT AT THIS TIME. PATIENT MOVED TO ER BED 11 AND ASSESSED. PATIENT REPORTS CC ABDOMINAL PAIN FOR A FEW DAYS AND REPORTS NAUSEA, VOMITING AND DIARRHEA. DENIES SOB OR CHEST PAIN. STATES HE FEELS THOUGH HE HAD A SEIZURE A FEW DAYS AGO BUT IS UNSURE. PATIENT TAKING TWO MEDICATIONS AND REPORTS HAVING AN INFECTION IN HIS STOMACH DX BY PCP. MEDS: CIPRO, DICYCLOMINE HX: NONE aLLERGY: PENICILLIN
[2021-05-27 22:03] LABS: BASOPHILS % (AUTO) 0.7 % (0.0-2.0); EOSINOPHILS % (AUTO) 0.7 % (0.0-4.0); HEMATOCRIT 41.9 % (36-52); HEMOGLOBIN 13.7 g/dL (12.0-18.0); LYMPHOCYTES # (AUTO) 1.4 K/uL (2.0-11.5); LYMPHOCYTES % (AUTO) 21.1 % (20.5-51.1); MEAN CORPUSCULAR HEMOGLOBIN 31 pg (27-31); MEAN CORPUSCULAR HGB CONC 33 g/dL (33-37); MONOCYTES # (AUTO) 0.8 K/uL (0.8-1.0); MONOCYTES % (AUTO) 11.1 % (1.7-9.3); NEUTROPHILS # (AUTO) 4.5 K/uL (1.8-7.7); NEUTROPHILS % (AUTO) 66.4 % (42.2-75.2); PLATELET COUNT (AUTO) 218 K/uL (140-450); RED BLOOD CELL COUNT(AUTO) 4.37 MIL/uL (4.20-6.10); RED CELL DISTRIBUTION WIDTH 13.7 % (11.6-13.7); WHITE BLOOD COUNT (AUTO) 6.8 K/uL (4.8-10.8)
[2021-05-27 22:17] LABS: ALBUMIN 3.9 g/dL (3.4-5.0); ANION GAP 13.6 (8-16); CARBON DIOXIDE 30.4 mmol/L (21-32); CREATININE 1.4 mg/dL (0.6-1.3); TOTAL BILIRUBIN 0.6 mg/dL (0.0-1.0)
[2021-05-28 00:21] LABS: APPEARANCE,URINE CLEAR (CLEAR); BILIRUBIN,URINE NEGATIVE (NEGATIVE); BLOOD, URINE NEGATIVE (NEGATIVE); COLOR,URINE YELLOW (YELLOW); LEUKOCYTE ESTERASE ,URINE NEGATIVE (NEGATIVE); NITRITE, URINE NEGATIVE (NEGATIVE); PH,URINE 6.5 (5.0-9.0); UGLUCOSE NEGATIVE (NEGATIVE)
[2021-05-28] MEDS ORDERED: FAMO-92 PO (01:34)
[2021-05-28] MEDS ORDERED: ONDANSETRON 4 MG/2 ML VIAL IVP ONE (01:40)
[2021-05-28] MEDS ORDERED: MORPHINE SULFATE 4 MG/ML SYR IVP ONE (01:40)
[2021-05-28] MEDS ORDERED: FAMOTIDINE 20 MG/2 ML VIAL IVP ONE (01:40)
[2021-05-28 03:43] VITALS: BP 118/59
== END 2021-05-28 03:44 | disposition home or self-care (01) ==
LOC: MED 20:18
DX: R10.9 Unspecified abdominal pain (principal); R11.2 Nausea with vomiting, unspecified; R19.7 Diarrhea, unspecified; G40.909 Epilepsy, unspecified, not intractable, without status epilepticus
CPT/HCPCS: 36415; 74176; 80053; 81003; 83690; 85025; 85379; 96374; 96375; 99284; J2270; J2405; J3490

== ENCOUNTER 2021-07-07 21:56 | Emergency (ER) | payer OTHER, MEDICAID ==
[~2021-07-07] VITALS: Ht 177.8 cm; Wt 80.7 kg
[~2021-07-07 21:56] MED LIST changes: +FAMO-92 PO
[2021-07-07 22:04] VITALS: BP 128/81
--- NOTE | 2021-07-07 22:12 | NUR ---
patient to bed 8 with urine cup in hand for urine collection
--- NOTE | 2021-07-07 22:20 | NUR ---
Patient presents to the ED with c/o abd pain. pt reports having diarrhea x2 and emesis x1 [employer]. Pt states he has hx of gastric ulcers and takes pepcid and dicyclomine. No s/s of distress noted at this time.
--- NOTE | 2021-07-07 22:24 | NUR ---
Patient being evaluated by Dr Leon
[2021-07-07] MEDS ORDERED: ESOM40EC PO (22:39)
[2021-07-07] MEDS ORDERED: KEP500 PO (22:40)
[2021-07-07 22:44] VITALS: BP 128/81
--- NOTE | 2021-07-07 22:47 | NUR ---
Patient discharged with v/s stable. Written and verbal after care instructions given and explained. Patient alert, oriented and verbalized understanding of instructions. Ambulatory with steady gait. All questions addressed prior to discharge. ID band removed. Patient advised to follow up with PMD. Rx of Nexium and Keppra given. Patient educated on indication of medication including possible reaction and side effects. Opportunity to ask questions provided and answered.
== END 2021-07-07 22:47 | disposition home or self-care (01) ==
LOC: MED 21:56
DX: K27.9 Peptic ulcer, site unspecified, unspecified as acute or chronic, without hemorrhage or perforation (principal); Z76.0 Encounter for issue of repeat prescription; Z86.69 Personal history of other diseases of the nervous system and sense organs; Z79.899 Other long term (current) drug therapy; Z79.1 Long term (current) use of non-steroidal anti-inflammatories (NSAID); Z88.0 Allergy status to penicillin
CPT/HCPCS: 99283

== ENCOUNTER 2021-07-21 15:50 | Emergency (ER) | payer OTHER, MEDICAID ==
[~2021-07-21] VITALS: Ht 180.3 cm; Wt 80.7 kg
[~2021-07-21 15:50] MED LIST changes: +ESOM40EC PO; +KEP500 PO
[2021-07-21 16:46] VITALS: BP 127/97
--- NOTE | 2021-07-21 16:51 | NUR ---
PT TO WAIT IN LOBBY.
--- NOTE | 2021-07-21 17:13 | NUR ---
60 Y/O MALE C/O BODY PAIN 9/10 X1WEEK. DENIES RX. DENIES N/V, DENIES FEVER/CHILLS. PMH: GASTRITIS, ULCERS ALLERGIES: PCN
[2021-07-21] MEDS ORDERED: HYDROcodone/APAP 5/325 MG 1 TAB TAB PO ONE (17:20)
[2021-07-21] MEDS ORDERED: FAMO-92 PO (17:24)
[2021-07-21] MEDS ORDERED: ACET-8386 PO (17:24)
[2021-07-21 17:46] VITALS: BP 127/97
--- NOTE | 2021-07-21 17:46 | NUR ---
Patient discharged with v/s stable. Written and verbal after care instructions given GASTRITIS AND CERVICAL STRAIN and explained. Patient alert, oriented and verbalized understanding of instructions. Ambulatory with steady gait. All questions addressed prior to discharge. ID band removed. Patient advised to follow up with PMD. Rx of NORCO AND PEPCID given. Patient educated on indication of medication including possible reaction and side effects. Opportunity to ask questions provided and answered.
== END 2021-07-21 17:46 | disposition home or self-care (01) ==
LOC: MED 15:50
DX: S16.1XXA Strain of muscle, fascia and tendon at neck level, initial encounter (principal); Z76.0 Encounter for issue of repeat prescription; K21.9 Gastro-esophageal reflux disease without esophagitis; Z86.69 Personal history of other diseases of the nervous system and sense organs; Z79.899 Other long term (current) drug therapy; Z79.891 Long term (current) use of opiate analgesic; Z79.1 Long term (current) use of non-steroidal anti-inflammatories (NSAID); Z88.0 Allergy status to penicillin; X58.XXXA Exposure to other specified factors, initial encounter; Y92.89 Other specified places as the place of occurrence of the external cause; Y93.89 Activity, other specified; Y99.8 Other external cause status
CPT/HCPCS: 99283

== ENCOUNTER 2021-08-26 00:51 | Inpatient (IN) | payer OTHER, MEDICAID, SELFPAY ==
[~2021-08-26] VITALS: Ht 177.8 cm; Wt 84.8 kg
[~2021-08-26 00:51] MED LIST changes: +ACET-8386 PO
[2021-08-26 01:11] VITALS: BP 79/45
[2021-08-26] MEDS ORDERED: ONDANSETRON 4 MG/2 ML VIAL IVP ONE ×2 (01:30→02:25)
[2021-08-26] MEDS ORDERED: MORPHINE SULFATE 4 MG/ML SYR IVP ONE (01:30)
[2021-08-26] MEDS ORDERED: NACL 0.9% 2,000 ML IV ONE (01:30)
--- NOTE | 2021-08-26 01:31 | NUR ---
patient from home c/o c/p that started today. worsening pain and was at a hospital recently and dx with pneumonia. 05/28 chest pressure. denies taking medication. had contact with someone that had covid 08/22/21. diaphoretic and dizziness. has body pains and weakness. +n/+v. pmh: szx, gastric ulcers allergies: penicillins
[2021-08-26 02:06] LABS: BASOPHILS % (AUTO) 0.5 % (0.0-2.0); HEMATOCRIT 41.7 % (36-52); HEMOGLOBIN 13.7 g/dL (12.0-18.0); LYMPHOCYTES % (AUTO) 32.8 % (20.5-51.1); MEAN CORPUSCULAR HEMOGLOBIN 31 pg (27-31); MEAN CORPUSCULAR HGB CONC 33 g/dL (33-37); MEAN CORPUSCULAR VOLUME 93.3 fL (80-94); MONOCYTES # (AUTO) 0.5 K/uL (0.8-1.0); MONOCYTES % (AUTO) 14.9 % (1.7-9.3); NEUTROPHILS # (AUTO) 1.6 K/uL (1.8-7.7); NEUTROPHILS % (AUTO) 51.8 % (42.2-75.2); PLATELET COUNT (AUTO) 195 K/uL (140-450); RED BLOOD CELL COUNT(AUTO) 4.47 MIL/uL (4.20-6.10); RED CELL DISTRIBUTION WIDTH 13.8 % (11.6-13.7); WHITE BLOOD COUNT (AUTO) 3.1 K/uL (4.8-10.8)
[2021-08-26] MEDS ORDERED: ALUMINUM HYD/MAG/SIMETHICONE 30 ML UDC PO ONE (02:25)
[2021-08-26 02:30] LABS: ALBUMIN 3.4 g/dL (3.4-5.0); ANION GAP 13.8 (8-16); CARBON DIOXIDE 27.1 mmol/L (21-32); CREATININE 1.5 mg/dL (0.6-1.3); POTASSIUM 3.9 mmol/L (3.5-5.1); TOTAL BILIRUBIN 0.9 mg/dL (0.0-1.0)
[2021-08-26 02:31] LABS: PROTHROMBIN TIME 10.3 secs (10.8-13.4)
--- NOTE | 2021-08-26 03:00 | NUR ---
provided patient urinal as patient needs to go use the bathroom
[2021-08-26] MEDS ORDERED: cefTRIAXone 1,000 MG VIAL ONE (03:02)
[2021-08-26 03:30] LABS: APPEARANCE,URINE CLEAR (CLEAR); BILIRUBIN,URINE 1+ (NEGATIVE); BLOOD, URINE NEGATIVE (NEGATIVE); COLOR,URINE DARK YELLOW (YELLOW); LEUKOCYTE ESTERASE ,URINE NEGATIVE (NEGATIVE); NITRITE, URINE NEGATIVE (NEGATIVE); UGLUCOSE NEGATIVE (NEGATIVE)
--- NOTE | 2021-08-26 03:46 | NUR ---
[facility]IC[facility] FAXED TO [facility] FOR ADMISSION
[2021-08-26 03:58] LABS: RBC,URINE 0-5 /HPF (0-5); WBC,URINE NONE SEEN /HPF (0-5)
[2021-08-26] MEDS ORDERED: ONDANSETRON 4 MG/2 ML VIAL IVP PRN (04:45)
[2021-08-26] MEDS ORDERED: AZITHROMYCIN 500 MG INJ VIAL IV ONE (06:16)
[2021-08-26] MEDS: AZITHROMYCIN 500 MG in DEXTROSE 5% 250 ML IV SCH (06:20)
[2021-08-26] MEDS: NACL 0.9% 1,000 ML IV SCH ×2 (06:30→18:05)
--- NOTE | 2021-08-26 07:32 | NUR ---
Pt report given to Sarah Beth CABELLO. Transfer of care at this time.
--- NOTE | 2021-08-26 07:33 | NUR ---
RECEIVED REPORT FROM DESTINEY WYNN. TRANSFER OF CARE AT THIS TIME.
--- NOTE | 2021-08-26 08:12 | NUR ---
PT RESTING IN BED, REPOSITIONED, VSS, WILL CONTINUE TO MONITOR.
--- NOTE | 2021-08-26 08:36 | NUR ---
PT SITTING UP IN BED, VSS, WILL CONTINUE TO MONITOR.
--- NOTE | 2021-08-26 08:42 | NUR ---
EMPTIED 350CC OF DARK YELLOW URINE.
[2021-08-26] MEDS: ENOXAPARIN 40 MG/0.4 ML SYR SUBQ SCH (09:00)
[2021-08-26] MEDS: levETIRAcetam 500 MG TAB PO SCH ×2 (09:00→21:00)
[2021-08-26] MEDS: FAMOTIDINE 20 MG TAB PO SCH (09:47)
[2021-08-26] MEDS: ACETAMINOPHEN 325 MG TAB PO PRN (10:30)
--- NOTE | 2021-08-26 12:13 | NUR ---
PT REPOSITIONED IN BED, HOB ELEVATED, VSS, WILL CONTINUE TO MONITOR. LUNCH TRAY PROVIDED.
--- NOTE | 2021-08-26 14:50 | NUR ---
PT SLEEPING, VISIBLE EQUAL RISE AND FALL OF CHEST, VSS, WILL CONTINUE TO MONITOR.
--- NOTE | 2021-08-26 16:40 | NUR ---
PT SLEEPING, VISIBLE EQUAL RISE AND FALL OF CHEST, VSS, WILL CONTINUE TO MONITOR.
[2021-08-26] MEDS ORDERED: remdesivir COMMUNICATION ORDER 1 EA MISC MC PRN (18:30)
--- NOTE | 2021-08-26 18:50 | NUR ---
PT RESTING, VISIBLE EQUAL RISE AND FALL OF CHEST. WILL CONTINUE TO MONITOR.
--- NOTE | 2021-08-26 19:10 | NUR ---
REPORT RECIEVED FROM DESTINEY BIRCH TO ASSUME CARE OF PT.
--- NOTE | 2021-08-26 19:10 | NUR ---
PT LYING IN BED WITH EYES CLOSED, APPEARS TO BE SLEEPING. EQUAL RISE AND FALL OF CHEST. NO ACUTE DISTRESS NOTED AT THIS TIME. ALL VS ARE STABLE. WILL CONTINUE TO MONITOR PT.
--- NOTE | 2021-08-26 19:23 | NUR ---
GAVE REPORT TO DESTINEY NY. TRANSFER OF CARE AT THIS TIME.
--- NOTE | 2021-08-26 21:00 | NUR ---
PT LYING IN BED WITH EYES OPEN. EQUAL RISE AND FALL OF THE CHEST. NO ACUTE DISTRESS NOTED. ALL VS ARE STABLE AT THIS TIME. WILL CONTINUE TO MONITOR PT.
--- NOTE | 2021-08-27 | NUR ---
PT LYING IN BED WITH EYES OPEN. RN PROVIDED PT WITH URINAL PER REQUEST. EQUAL RISE AND FALL OF THE CHEST. NO ACUTE DISTRESS NOTED. ALL VS ARE STABLE AT THIS TIME. WILL CONTINUE TO MONITOR PT.
--- NOTE | 2021-08-27 02:17 | NUR ---
PT LYING IN BED WITH EYES CLOSED, APPEARS TO BE SLEEPING. RN PROVIDED PT WITH WARM BLANKETS FOR COMFORT. EQUAL RISE AND FALL OF THE CHEST. NO ACUTE DISTRESS NOTED. ALL VS ARE STABLE AT THIS TIME. WILL CONTINUE TO MONITOR PT.
--- NOTE | 2021-08-27 03:14 | NUR ---
PT LYING IN BED WITH EYES CLOSED, APPEARS TO BE SLEEPING. EQUAL RISE AND FALL OF THE CHEST. NO ACUTE DISTRESS NOTED. ALL VS ARE STABLE AT THIS TIME. WILL CONTINUE TO MONITOR PT.
--- NOTE | 2021-08-27 04:10 | NUR ---
RN TO PT ROOM. PT COMPLAINING OF HEADACHE, RATES PAIN 6/10. PT REQUESTS TYLENOL. RN ADMINISTERED PRN TYLENOL PER PT REQUEST. ALL VS ARE STABLE AT THIS TIME.
[2021-08-27] MEDS ORDERED: AZITHROMYCIN 500 MG INJ VIAL IV ONE (04:13)
[2021-08-27] MEDS: AZITHROMYCIN 500 MG in DEXTROSE 5% 250 ML IV SCH (04:27)
[2021-08-27] MEDS: ACETAMINOPHEN 325 MG TAB PO PRN ×2 (04:40→08:31)
--- NOTE | 2021-08-27 06:05 | NUR ---
PT LYING IN BED WITH EYES CLOSED, APPEARS TO BE SLEEPING AND RELAXED. EQUAL RISE AND FALL OF THE CHEST. NO ACUTE DISTRESS NOTED. ALL VS ARE STABLE AT THIS TIME. WILL CONTINUE TO MONITOR PT.
--- NOTE | 2021-08-27 07:17 | NUR ---
REPORT GIVEN TO DESTINEY BIRCH TO ASSUME CARE OF PT.
--- NOTE | 2021-08-27 07:20 | NUR ---
RECEIVED REPORT FROM DESTINEY NY. TRANSFER OF CARE AT THIS TIME.
--- NOTE | 2021-08-27 08:23 | NUR ---
PT C/O SORE THROAT AND RESTLESSNESS, DR. SAMANTHA FERRO.
[2021-08-27] MEDS: FAMOTIDINE 20 MG TAB PO SCH (08:30)
[2021-08-27] MEDS: ENOXAPARIN 40 MG/0.4 ML SYR SUBQ SCH (08:31)
[2021-08-27] MEDS ORDERED: LORazepam 0.5 MG TAB PO PRN (08:40)
[2021-08-27] MEDS ORDERED: BENZOCAINE/MENTHOL 1 LOZ MM PRN (08:40)
[2021-08-27] MEDS ORDERED: LORazepam 0.5 MG TAB ONE (08:57)
[2021-08-27 08:58] LABS: BASOPHILS % (AUTO) 0.3 % (0.0-2.0); EOSINOPHILS % (AUTO) 0.4 % (0.0-4.0); HEMATOCRIT 35.9 % (36-52); HEMOGLOBIN 11.8 g/dL (12.0-18.0); LYMPHOCYTES % (AUTO) 33.7 % (20.5-51.1); MEAN CORPUSCULAR HEMOGLOBIN 31 pg (27-31); MEAN CORPUSCULAR HGB CONC 33 g/dL (33-37); MEAN CORPUSCULAR VOLUME 93.8 fL (80-94); MONOCYTES # (AUTO) 0.5 K/uL (0.8-1.0); MONOCYTES % (AUTO) 18.1 % (1.7-9.3); NEUTROPHILS # (AUTO) 1.4 K/uL (1.8-7.7); NEUTROPHILS % (AUTO) 47.5 % (42.2-75.2); PLATELET COUNT (AUTO) 206 K/uL (140-450); RED BLOOD CELL COUNT(AUTO) 3.82 MIL/uL (4.20-6.10); RED CELL DISTRIBUTION WIDTH 13.7 % (11.6-13.7); WHITE BLOOD COUNT (AUTO) 2.9 K/uL (4.8-10.8)
[2021-08-27] MEDS ORDERED: FAMOTIDINE 20 MG TAB PO SCH (09:00)
[2021-08-27] MEDS ORDERED: BENZOCAINE/MENTHOL 1 LOZ MM ONE (09:01)
--- NOTE | 2021-08-27 09:03 | NUR ---
PT MEDICATED WITH ATIVAN 0.5MG AND CEPACOL LOZENGE PER MD ORDERS.
[2021-08-27 09:18] LABS: ALBUMIN 2.7 g/dL (3.4-5.0); ANION GAP 12.6 (8-16); CARBON DIOXIDE 27.3 mmol/L (21-32); CREATININE 1.2 mg/dL (0.6-1.3); POTASSIUM 3.9 mmol/L (3.5-5.1); TOTAL BILIRUBIN 0.5 mg/dL (0.0-1.0)
[2021-08-27] MEDS: levETIRAcetam 500 MG TAB PO SCH (10:12)
[2021-08-27] MEDS: NACL 0.9% 1,000 ML IV SCH (10:13)
[2021-08-27] MEDS ORDERED: AZIT250T4 PO (10:35)
--- NOTE | 2021-08-27 10:46 | NUR ---
PATIENT HAS BEEN SCREENED AND CATEGORIZED MODERATE NUTRITION RISK. PATIENT WILL BE SEEN WITHIN 3-5 DAYS OF ADMISSION. 08/29/21 08/31/[address]
[2021-08-27 12:00] VITALS: BP 110/73
--- NOTE | 2021-08-27 12:00 | NUR ---
PT SLEEPING, VISIBLE EQUAL RISE AND FALL OF CHEST, VSS, WILL CONTINUE TO MONITOR.
--- NOTE | 2021-08-27 14:42 | NUR ---
Patient discharged with v/s stable. Written and verbal after care instructions given SOB, COVID 19, AND PNEUMONIA and explained. Patient alert, oriented and verbalized understanding of instructions. Ambulatory with steady gait. All questions addressed prior to discharge. ID band removed. Patient advised to follow up with PMD. Rx of AZITHROMYCIN given. Patient educated on indication of medication including possible reaction and side effects. Opportunity to ask questions provided and answered.
[2021-08-28] MEDS ORDERED: AZITHROMYCIN 250 MG TAB PO SCH (09:00)
== END 2021-08-27 14:42 | disposition home or self-care (01) | DRG 871 ==
LOC: MED 00:51 → MTU 04:49
PROVIDERS: ADMIT Hospitalist; ATTEND Hospitalist
DX: A41.89 Other specified sepsis (principal); U07.1 COVID-19; J12.82 Pneumonia due to coronavirus disease 2019; N17.9 Acute kidney failure, unspecified; R74.01 Elevation of levels of liver transaminase levels; G40.909 Epilepsy, unspecified, not intractable, without status epilepticus; E86.0 Dehydration; K21.9 Gastro-esophageal reflux disease without esophagitis; Z88.0 Allergy status to penicillin; Z79.899 Other long term (current) drug therapy
CPT/HCPCS: 36415; 71045; 80053; 81001; 83605; 83735; 84484; 85025; 85610; 85730; 87040; 93005; 96361; 96374; 96375; 99291; J0456; J0696; J1650; J2270; J2405; J7060; Q0092; U0003

== ENCOUNTER 2021-09-27 10:52 | Emergency (ER) | payer OTHER, MEDICAID ==
[~2021-09-27] VITALS: Ht 177.8 cm; Wt 84.8 kg
[~2021-09-27 10:52] MED LIST changes: -ACET-8386 PO; +AZIT250T4 PO; -FAMO-92 PO; -IBUP-2213 PO; -IMO2 PO; -LIDO4CRE18 TP; -ONDA4TAB PO
[2021-09-27 11:03] VITALS: BP_SYST 106; BP_SYST 109; BP_DIAS 62; BP_DIAS 70
[2021-09-27] MEDS ORDERED: DICYCLOMINE HCL LIQUID 20 MG, ALUMINUM HYD/MAG/SIMETHICONE 30 ML, LIDOCAINE VISCOUS 2% ... PO ONE ×3 (11:40)
[2021-09-27] MEDS ORDERED: ALUMINUM HYD/MAG/SIMETHICONE 30 ML UDC ONE (12:05)
[2021-09-27] MEDS ORDERED: DICYCLOMINE HCL LIQUID 10 MG/5 ML UDC ONE (12:05)
--- NOTE | 2021-09-27 12:09 | NUR ---
60 Y/O MALE C/O ABD PAIN / X2DAYS WITH INTERMITTENT CHEST PAIN S/P EATING FOOD. PT STATES NAPROXEN WITH SOME RELIEF. STATES N/V, DENIES FEVER/CHILLS. DENIES PMH NKA
[2021-09-27] MEDS ORDERED: MAG-27 PO (12:20)
[2021-09-27] MEDS ORDERED: ACET-10509 PO (12:20)
[2021-09-27] MEDS ORDERED: OMEP40EC24 PO (12:20)
[2021-09-27] MEDS ORDERED: LOPE1TAB14 PO (12:20)
[2021-09-27 12:56] VITALS: BP 106/70
--- NOTE | 2021-09-27 12:56 | NUR ---
Patient discharged with v/s stable. Written and verbal after care instructions given and explained. Patient alert, oriented and verbalized understanding of instructions. Ambulatory with steady gait. All questions addressed prior to discharge. ID band removed. Patient advised to follow up with PMD. Rx of OMPERAZOLE, MULANTA, IMODIUM, AND TYLENOL given. Patient educated on indication of medication including possible reaction and side effects. Opportunity to ask questions provided and answered.
== END 2021-09-27 12:56 | disposition home or self-care (01) ==
LOC: MED 10:52
DX: K21.9 Gastro-esophageal reflux disease without esophagitis (principal); Z88.0 Allergy status to penicillin
CPT/HCPCS: 99283

== ENCOUNTER 2022-03-01 14:56 | Emergency (ER) | payer OTHER, MEDICAID ==
[~2022-03-01] VITALS: Ht 177.8 cm; Wt 79.8 kg
[~2022-03-01 14:56] MED LIST changes: +ACET-10509 PO; +LOPE1TAB14 PO; +MAG-27 PO; +OMEP40EC24 PO
[2022-03-01 15:18] VITALS: BP 123/74
--- NOTE | 2022-03-01 15:22 | NUR ---
PT TO WAIT IN LOBBY WITH MOTHER.
--- NOTE | 2022-03-01 16:44 | NUR ---
DR. GARCIA WITH PT FOR FURTHER EVALUATION.
[2022-03-01] MEDS ORDERED: OMEP40EC24 PO (16:57)
[2022-03-01] MEDS ORDERED: LOPE-289 PO (16:57)
[2022-03-01] MEDS ORDERED: IBUP-2213 PO (16:57)
[2022-03-01] MEDS ORDERED: ONDA8TAB87 PO (16:57)
[2022-03-01] MEDS: ONDANSETRON 4 MG ODT PO ONE (17:27)
[2022-03-01] MEDS: KETOROLAC 60 MG/2 ML VIAL IM ONE (17:29)
[2022-03-01 17:46] VITALS: BP 124/77
--- NOTE | 2022-03-01 17:48 | NUR ---
Patient discharged with v/s stable. Written and verbal after care instructions ABOUT nAUSEA, vOMITING, DIARRHEA, ABDOMINAL PAIN given and explained. Patient alert, oriented and verbalized understanding of instructions. Ambulatory with steady gait. All questions addressed prior to discharge. ID band removed. Patient advised to follow up with PMD. Rx of IBUPROFEN, LOPERAMIDE, OMEPRAZOLE, ONDANSETRON given. Patient educated on indication of medication including possible reaction and side effects. Opportunity to ask questions provided and answered.
[2022-03-01] MEDS ORDERED: ATA25 PO (17:50)
== END 2022-03-01 17:48 | disposition home or self-care (01) ==
LOC: MED 14:56
DX: R10.12 Left upper quadrant pain (principal); R11.2 Nausea with vomiting, unspecified; R19.7 Diarrhea, unspecified; K21.9 Gastro-esophageal reflux disease without esophagitis; Z88.0 Allergy status to penicillin
CPT/HCPCS: 93005; 96372; 99283; J1885; Q0162

== ENCOUNTER 2022-03-14 11:29 | Emergency (ER) | payer OTHER, MEDICAID ==
[~2022-03-14] VITALS: Ht 177.8 cm; Wt 84.8 kg
[~2022-03-14 11:29] MED LIST changes: +ATA25 PO; +IBUP-2213 PO; +LOPE-289 PO; +ONDA8TAB87 PO
[2022-03-14 11:44] VITALS: BP 114/78
--- NOTE | 2022-03-14 12:37 | NUR ---
PT AMBULATED TO BED 07.
--- NOTE | 2022-03-14 13:22 | NUR ---
61/M C/O BIB SELF C/O ABD PAIN, NAUSEA AND DIARRHEA SINCE YESTERDAY. PT STATES SYMPTOMS BEGAN SHORTLY AFTER EATING AT A FRIENDS HOUSE, DENIES VOMITING/SOB/CHILLS. DENIES TAKING MEDS FOR SYMPTOMS. PMH: DENIES ALLERGIES: PENICILLINS
--- NOTE | 2022-03-14 13:25 | NUR ---
61/M PRESENTS TO ED WITH C/O ABD PAIN, NAUSEA AND DIARRHEA SINCE YESTERDAY, STATES SYMPTOMS BEGAN SHORTLY AFTER EATING AT A FRIENDS HOUSE, DENIES VOMITING, SOB, CP, DENIES TAKING MEDS FOR SYMPTOMS.
--- NOTE | 2022-03-14 13:44 | NUR ---
DR MEADOWS AT BEDSIDE.
[2022-03-14] MEDS ORDERED: KETOROLAC 30 MG/ML VIAL IVP ONE (13:45)
[2022-03-14] MEDS ORDERED: NACL 0.9% 1,000 ML IV SCH (13:45)
[2022-03-14] MEDS ORDERED: ONDANSETRON 4 MG/2 ML VIAL IVP ONE (13:45)
--- NOTE | 2022-03-14 13:55 | NUR ---
PT TO CT BY WHEELCHAIR.
[2022-03-14 14:59] LABS: BASOPHILS % (AUTO) 0.7 % (0.0-2.0); EOSINOPHILS # (AUTO) 0.1 K/uL (0-0.4); EOSINOPHILS % (AUTO) 1.8 % (0.0-4.0); HEMATOCRIT 41.9 % (36-52); HEMOGLOBIN 13.7 g/dL (12.0-18.0); MEAN CORPUSCULAR HEMOGLOBIN 31 pg (27-31); MEAN CORPUSCULAR HGB CONC 33 g/dL (33-37); MEAN CORPUSCULAR VOLUME 94.8 fL (80-94); MONOCYTES # (AUTO) 0.5 K/uL (0.8-1.0); NEUTROPHILS # (AUTO) 2.4 K/uL (1.8-7.7); NEUTROPHILS % (AUTO) 59.5 % (42.2-75.2); PLATELET COUNT (AUTO) 195 K/uL (140-450); RED BLOOD CELL COUNT(AUTO) 4.42 MIL/uL (4.20-6.10); RED CELL DISTRIBUTION WIDTH 13.9 % (11.6-13.7)
[2022-03-14 15:21] LABS: ALBUMIN 3.4 g/dL (3.4-5.0); CARBON DIOXIDE 31.2 mmol/L (21-32); CREATININE 1.2 mg/dL (0.6-1.3); POTASSIUM 4.2 mmol/L (3.5-5.1); TOTAL BILIRUBIN 0.5 mg/dL (0.0-1.0)
[2022-03-14 15:30] LABS: APPEARANCE,URINE CLEAR (CLEAR); BILIRUBIN,URINE NEGATIVE (NEGATIVE); BLOOD, URINE NEGATIVE (NEGATIVE); COLOR,URINE YELLOW (YELLOW); LEUKOCYTE ESTERASE ,URINE NEGATIVE (NEGATIVE); NITRITE, URINE NEGATIVE (NEGATIVE); UGLUCOSE NEGATIVE (NEGATIVE)
[2022-03-14] MEDS ORDERED: ACET-10509 PO (15:46)
[2022-03-14 16:12] VITALS: BP 142/78
--- NOTE | 2022-03-14 16:13 | NUR ---
Patient discharged with v/s stable. Written and verbal after care instructions given and explained. Patient alert, oriented and verbalized understanding of instructions. Ambulatory with steady gait. All questions addressed prior to discharge. ID band removed. Patient advised to follow up with PMD. Rx of ACETAMINOPHEN TAB given. Opportunity to ask questions provided and answered.
--- NOTE | 2022-03-14 16:15 | NUR ---
The patient's care was reviewed and supervised by Kaylen Rose RN.
== END 2022-03-14 16:12 | disposition home or self-care (01) ==
LOC: MED 11:29
DX: K57.90 Diverticulosis of intestine, part unspecified, without perforation or abscess without bleeding (principal); K21.9 Gastro-esophageal reflux disease without esophagitis; Z88.0 Allergy status to penicillin
CPT/HCPCS: 36415; 74176; 80053; 81003; 83605; 83690; 85025; 87040; 96361; 96374; 96375; 99284; J1885; J2405; J7030

== ENCOUNTER 2022-04-04 00:38 | Emergency (ER) | payer OTHER, MEDICAID ==
[~2022-04-04] VITALS: Ht 177.8 cm; Wt 84.8 kg
[2022-04-04 00:49] VITALS: BP 137/84
--- NOTE | 2022-04-04 00:52 | NUR ---
to lobby a/w bed ambulatory
--- NOTE | 2022-04-04 01:04 | NUR ---
PT AMBULATED TO BED #1
--- NOTE | 2022-04-04 01:14 | NUR ---
ARMATURE BANDER AT BEDSIDE OBTAINING BLOOD SAMPLE
--- NOTE | 2022-04-04 01:17 | NUR ---
XRAY AT BEDSIDE
--- NOTE | 2022-04-04 01:18 | NUR ---
61 Y/O MALE BIBS FROM HOME, C/O CHEST PRESSURE X1 DAY. PT STATES HIS FINGERS ARE NUMB, CRAMPS THROUGHOUT HIS BODY AND PAIN IN HIS BACK WITH DEEP INSPIRATION. NO CYNAOSIS, SKIN IS PINK/WARM/DRY. A/OX4, UNLABORED BREATHING, SPEAKING IN FULL SENTENCES; AMBULATORY W/O ASSISTANCE. DENIES N/V/D, SOB, COUGH, OR FEVER. ALL: PCN
[2022-04-04 01:22] LABS: BASOPHILS # (AUTO) 0.1 K/uL (0.00-0.22); BASOPHILS % (AUTO) 1.1 % (0.0-2.0); EOSINOPHILS # (AUTO) 0.1 K/uL (0-0.4); EOSINOPHILS % (AUTO) 1.6 % (0.0-4.0); HEMATOCRIT 38.2 % (36-52); HEMOGLOBIN 12.6 g/dL (12.0-18.0); LYMPHOCYTES # (AUTO) 1.6 K/uL (2.0-11.5); LYMPHOCYTES % (AUTO) 29.6 % (20.5-51.1); MEAN CORPUSCULAR HEMOGLOBIN 31 pg (27-31); MEAN CORPUSCULAR HGB CONC 33 g/dL (33-37); MEAN CORPUSCULAR VOLUME 93.8 fL (80-94); MONOCYTES # (AUTO) 0.7 K/uL (0.8-1.0); MONOCYTES % (AUTO) 12.9 % (1.7-9.3); NEUTROPHILS % (AUTO) 54.8 % (42.2-75.2); PLATELET COUNT (AUTO) 173 K/uL (140-450); RED BLOOD CELL COUNT(AUTO) 4.07 MIL/uL (4.20-6.10); RED CELL DISTRIBUTION WIDTH 13.8 % (11.6-13.7); WHITE BLOOD COUNT (AUTO) 5.5 K/uL (4.8-10.8)
[2022-04-04 01:44] LABS: ALBUMIN 3.3 g/dL (3.4-5.0); ANION GAP 10.2 (8-16); CARBON DIOXIDE 27.4 mmol/L (21-32); CREATININE 1.3 mg/dL (0.6-1.3); POTASSIUM 3.6 mmol/L (3.5-5.1); TOTAL BILIRUBIN 0.4 mg/dL (0.0-1.0)
[2022-04-04] MEDS ORDERED: MORPHINE SULFATE 4 MG/ML SYR IVP ONE (01:55)
[2022-04-04] MEDS ORDERED: ASPIRIN 325 MG TAB PO ONE (01:55)
[2022-04-04] MEDS ORDERED: NITROGLYCERIN 2% 1 GM PKT TP ONE (01:55)
[2022-04-04 02:33] LABS: BARBITURATE, URINE NEGATIVE ng/ml (NEG <=200); BENZODIAZEPINE, URINE NEGATIVE ng/mL (NEG <=200); CANNABINOID, URINE NEGATIVE ng/mL (NEG <=50); COCAINE, URINE NEGATIVE ng/mL (NEG <=300); OPIATE, URINE NEGATIVE ng/mL (NEG <=2000); PHENCYCLIDINE SCREEN,URINE NEGATIVE ng/mL (NEG <=25)
[2022-04-04] MEDS ORDERED: NAPR-54 PO (03:24)
[2022-04-04 03:33] VITALS: BP 134/80
--- NOTE | 2022-04-04 03:33 | NUR ---
Patient discharged with v/s stable. Written and verbal after care instructions given and explained. Patient alert, oriented and verbalized understanding of instructions. Ambulatory with steady gait. All questions addressed prior to discharge. ID band removed. Patient advised to follow up with PMD. Rx of NAPROSYN given. Patient educated on indication of medication including possible reaction and side effects. Opportunity to ask questions provided and answered. VSS, A/OX4, UNLABORED BREATHING, AMBULATORY, AND CALM DEMEANOR.
== END 2022-04-04 03:28 | disposition home or self-care (01) ==
LOC: MED 00:38
DX: R07.89 Other chest pain (principal); M94.0 Chondrocostal junction syndrome [Tietze]; K21.9 Gastro-esophageal reflux disease without esophagitis; Z88.0 Allergy status to penicillin
CPT/HCPCS: 36415; 71045; 80053; 80305; 83880; 84484; 85025; 85379; 93005; 96374; 99285; J2270; Q0092

== ENCOUNTER 2022-04-13 22:49 | Emergency (ER) | payer OTHER, MEDICAID ==
[~2022-04-13] VITALS: Ht 177.8 cm; Wt 81.6 kg
[~2022-04-13 22:49] MED LIST changes: +NAPR-54 PO
[2022-04-13 23:27] VITALS: BP 149/65
--- NOTE | 2022-04-13 23:30 | NUR ---
61YR OLD MALE BIB SELF C/O R GROIN PAIN X4 DAYS. PT DENIES PAIN WITH URINATION. DENIES FEVER N/V. PT IS A&OX4. GAIT STEADY. HOB ELEVATED BED AT LOWEST POSITION PCN
--- NOTE | 2022-04-13 23:32 | NUR ---
pt to lobby
--- NOTE | 2022-04-14 00:48 | NUR ---
PT AMBUALTED TO BED #8. DR. GONZALEZ BEDSIDE FOR MSE
[2022-04-14 01:45] LABS: BASOPHILS % (AUTO) 0.9 % (0.0-2.0); EOSINOPHILS # (AUTO) 0.1 K/uL (0-0.4); EOSINOPHILS % (AUTO) 2.5 % (0.0-4.0); HEMATOCRIT 37.6 % (36-52); HEMOGLOBIN 12.5 g/dL (12.0-18.0); LYMPHOCYTES # (AUTO) 1.8 K/uL (2.0-11.5); LYMPHOCYTES % (AUTO) 35.5 % (20.5-51.1); MEAN CORPUSCULAR HEMOGLOBIN 31 pg (27-31); MEAN CORPUSCULAR HGB CONC 33 g/dL (33-37); MEAN CORPUSCULAR VOLUME 93.8 fL (80-94); MONOCYTES # (AUTO) 0.6 K/uL (0.8-1.0); MONOCYTES % (AUTO) 12.5 % (1.7-9.3); NEUTROPHILS # (AUTO) 2.5 K/uL (1.8-7.7); NEUTROPHILS % (AUTO) 48.6 % (42.2-75.2); PLATELET COUNT (AUTO) 176 K/uL (140-450); RED BLOOD CELL COUNT(AUTO) 4.01 MIL/uL (4.20-6.10); RED CELL DISTRIBUTION WIDTH 13.7 % (11.6-13.7); WHITE BLOOD COUNT (AUTO) 5.2 K/uL (4.8-10.8)
[2022-04-14 02:11] LABS: ALBUMIN 3.3 g/dL (3.4-5.0); ANION GAP 9.3 (8-16); CARBON DIOXIDE 29.3 mmol/L (21-32); CREATININE 1.4 mg/dL (0.6-1.3); POTASSIUM 3.6 mmol/L (3.5-5.1); TOTAL BILIRUBIN 0.3 mg/dL (0.0-1.0)
[2022-04-14] MEDS ORDERED: CIPR500T4 PO (02:46)
[2022-04-14] MEDS ORDERED: NAPR-54 PO (02:53)
[2022-04-14] MEDS ORDERED: KETOROLAC 60 MG/2 ML VIAL IM ONE (02:55)
[2022-04-14 03:09] VITALS: BP 133/78
--- NOTE | 2022-04-14 03:09 | NUR ---
Patient discharged with v/s stable. Written and verbal after care instructions given and explained by dr. birch. Patient alert, oriented and verbalized understanding of instructions. Ambulatory with steady gait. All questions addressed prior to discharge. ID band removed. Patient advised to follow up with PMD. Rx of naprosyn and cipro given. Patient educated on indication of medication including possible reaction and side effects. Opportunity to ask questions provided and answered.
--- NOTE | 2022-04-14 03:10 | NUR ---
The patient's care was reviewed and supervised by Janell Hernández RN.
[2022-04-14 09:45] LABS: APPEARANCE,URINE CLEAR (CLEAR); BILIRUBIN,URINE NEGATIVE (NEGATIVE); BLOOD, URINE NEGATIVE (NEGATIVE); COLOR,URINE YELLOW (YELLOW); LEUKOCYTE ESTERASE ,URINE NEGATIVE (NEGATIVE); NITRITE, URINE NEGATIVE (NEGATIVE); UGLUCOSE NEGATIVE (NEGATIVE)
== END 2022-04-14 02:51 | disposition home or self-care (01) ==
LOC: MED 22:49
DX: S73.101A Unspecified sprain of right hip, initial encounter (principal); N45.1 Epididymitis; K21.9 Gastro-esophageal reflux disease without esophagitis; Z88.0 Allergy status to penicillin; Z79.899 Other long term (current) drug therapy; X58.XXXA Exposure to other specified factors, initial encounter; Y93.89 Activity, other specified; Y92.89 Other specified places as the place of occurrence of the external cause; Y99.8 Other external cause status
CPT/HCPCS: 36415; 74176; 80053; 81003; 85025; 96372; 99284; J1885

== ENCOUNTER 2022-04-19 22:05 | Emergency (ER) | payer OTHER, MEDICAID ==
[~2022-04-19] VITALS: Ht 177.8 cm; Wt 78.0 kg
[~2022-04-19 22:05] MED LIST changes: +CIPR500T4 PO
[2022-04-19 22:33] VITALS: BP 112/87
--- NOTE | 2022-04-20 00:08 | NUR ---
Patient taken to US.
--- NOTE | 2022-04-20 01:30 | NUR ---
PT AMBULATED TO BED AT THIS TIME WITH NURSE
--- NOTE | 2022-04-20 01:30 | NUR ---
Patient ambulated to bed 7.
[2022-04-20 01:49] LABS: APPEARANCE,URINE CLEAR (CLEAR); BILIRUBIN,URINE NEGATIVE (NEGATIVE); BLOOD, URINE NEGATIVE (NEGATIVE); COLOR,URINE DARK YELLOW (YELLOW); LEUKOCYTE ESTERASE ,URINE NEGATIVE (NEGATIVE); NITRITE, URINE NEGATIVE (NEGATIVE); PH,URINE 5.5 (5.0-9.0); UGLUCOSE NEGATIVE (NEGATIVE)
[2022-04-20] MEDS ORDERED: KETOROLAC 30 MG/ML VIAL IM ONE (01:50)
[2022-04-20] MEDS ORDERED: HYDROcodone/APAP 5/325 MG 1 TAB TAB PO ONE (01:50)
--- NOTE | 2022-04-20 01:50 | NUR ---
URINE COLLECTED AND WALKED TO LAB
[2022-04-20] MEDS ORDERED: DICYCLOMINE HCL LIQUID 20 MG, ALUMINUM HYD/MAG/SIMETHICONE 30 ML, LIDOCAINE VISCOUS 2% ... PO ONE ×3 (01:55)
--- NOTE | 2022-04-20 01:57 | NUR ---
61/M BIB SELF C/C RIGHT SIDED GROIN PAIN X 04/13. PER PATIENT HE WAS SEEN BY ERMD AND RX NAPROXEN AND CIPRO WITH NO RELIEF. PATIENT C/O PAIN 04/28 AND SHARP. RR APPEAR TO BE EVEN AND UNLABORED. PATIETN DENIES SOB/CP/N/V/FEVER AT THIS TIME. PATIETN PLACED IN BED AND GOWN. BED LOW AND LOCKED. ALL NEEDS MET PMHX, RX DENIES NKA
[2022-04-20] MEDS ORDERED: DICYCLOMINE HCL LIQUID 10 MG/5 ML UDC ONE (02:05)
[2022-04-20] MEDS ORDERED: ALUMINUM HYD/MAG/SIMETHICONE 30 ML UDC ONE (02:05)
--- NOTE | 2022-04-20 02:17 | NUR ---
PATIETN MEDICATED PER ORDERS. TOLERATED WELL.
[2022-04-20] MEDS ORDERED: ACET-8386 PO (02:50)
[2022-04-20 03:07] VITALS: BP 139/70
--- NOTE | 2022-04-20 03:07 | NUR ---
Patient discharged with v/s stable. Written and verbal after care instructions given and explained. Patient alert, oriented and verbalized understanding of instructions. Ambulatory with steady gait. All questions addressed prior to discharge. ID band removed. Patient advised to follow up with PMD. Rx of hydrocodone-acetaminophen given. Patient educated on indication of medication including possible reaction and side effects. Opportunity to ask questions provided and answered.
--- NOTE | 2022-04-20 03:20 | NUR ---
The patient's care was reviewed and supervised by Amie Seals RN, RN.
[2022-04-21] MEDS ORDERED: DICL100G5 TP (18:38)
[2022-04-21] MEDS ORDERED: CYCL-711 PO (18:38)
== END 2022-04-20 03:07 | disposition home or self-care (01) ==
LOC: MED 22:05
DX: M25.551 Pain in right hip (principal); R10.30 Lower abdominal pain, unspecified; K21.9 Gastro-esophageal reflux disease without esophagitis; Z79.899 Other long term (current) drug therapy; Z88.0 Allergy status to penicillin
CPT/HCPCS: 76870; 81003; 96372; 99284; J1885; Q0092; 81002

== ENCOUNTER 2022-04-21 15:23 | Emergency (ER) | payer OTHER, MEDICAID ==
[~2022-04-21] VITALS: Ht 177.8 cm; Wt 80.7 kg
[~2022-04-21 15:23] MED LIST changes: +ACET-8386 PO
[2022-04-21 15:27] VITALS: BP 131/74
--- NOTE | 2022-04-21 16:00 | NUR ---
C/O R GROIN PAIN, R TESTICLE SWELLING X 4 DAYS. SEEN HERE YESTERDAY SAME S/S. PMH: DENIES
--- NOTE | 2022-04-21 16:17 | NUR ---
PT IS UNABLE TO PROVIDE URINE AT THIS TIME.
--- NOTE | 2022-04-21 16:33 | NUR ---
Patient being evaluated by DR ARAUJO at TRIAGE ROOM.
[2022-04-21] MEDS ORDERED: KETOROLAC 30 MG/ML VIAL IM ONE (16:40)
[2022-04-21] MEDS ORDERED: HYDROcodone/APAP 5/325 MG 1 TAB TAB PO ONE (16:40)
[2022-04-21 17:08] LABS: EOSINOPHILS # (AUTO) 0.1 K/uL (0-0.4); EOSINOPHILS % (AUTO) 1.8 % (0.0-4.0); HEMATOCRIT 39.4 % (36-52); HEMOGLOBIN 12.8 g/dL (12.0-18.0); LYMPHOCYTES # (AUTO) 1.4 K/uL (2.0-11.5); LYMPHOCYTES % (AUTO) 33.7 % (20.5-51.1); MEAN CORPUSCULAR HEMOGLOBIN 30 pg (27-31); MEAN CORPUSCULAR HGB CONC 32 g/dL (33-37); MEAN CORPUSCULAR VOLUME 93.8 fL (80-94); MONOCYTES # (AUTO) 0.6 K/uL (0.8-1.0); MONOCYTES % (AUTO) 14.1 % (1.7-9.3); NEUTROPHILS # (AUTO) 2.1 K/uL (1.8-7.7); NEUTROPHILS % (AUTO) 49.4 % (42.2-75.2); PLATELET COUNT (AUTO) 201 K/uL (140-450); RED CELL DISTRIBUTION WIDTH 13.9 % (11.6-13.7); WHITE BLOOD COUNT (AUTO) 4.2 K/uL (4.8-10.8)
[2022-04-21 17:23] LABS: ALBUMIN 3.4 g/dL (3.4-5.0); ANION GAP 12.3 (8-16); CARBON DIOXIDE 29.5 mmol/L (21-32); CREATININE 1.4 mg/dL (0.6-1.3); POTASSIUM 3.8 mmol/L (3.5-5.1); TOTAL BILIRUBIN 0.6 mg/dL (0.0-1.0)
[2022-04-21 17:52] LABS: APPEARANCE,URINE CLEAR (CLEAR); BILIRUBIN,URINE NEGATIVE (NEGATIVE); BLOOD, URINE NEGATIVE (NEGATIVE); COLOR,URINE YELLOW (YELLOW); LEUKOCYTE ESTERASE ,URINE NEGATIVE (NEGATIVE); NITRITE, URINE NEGATIVE (NEGATIVE); UGLUCOSE NEGATIVE (NEGATIVE)
[2022-04-21] MEDS ORDERED: CYCL-711 PO (18:38)
[2022-04-21] MEDS ORDERED: DICL100G5 TP (18:38)
[2022-04-21 18:48] VITALS: BP 131/74
--- NOTE | 2022-04-21 18:49 | NUR ---
Patient discharged with v/s stable. Written and verbal after care instructions given and explained. Patient alert, oriented and verbalized understanding of instructions. Ambulatory with steady gait. All questions addressed prior to discharge. ID band removed. Patient advised to follow up with PMD. Rx of cyclobenzaprine, diclofenac (sent) given. Patient educated on indication of medication including possible reaction and side effects. Opportunity to ask questions provided and answered.
== END 2022-04-21 16:35 | disposition home or self-care (01) ==
LOC: MED 15:23
DX: N43.3 Hydrocele, unspecified (principal); K21.9 Gastro-esophageal reflux disease without esophagitis; Z86.69 Personal history of other diseases of the nervous system and sense organs; Z79.899 Other long term (current) drug therapy; Z79.1 Long term (current) use of non-steroidal anti-inflammatories (NSAID); Z79.2 Long term (current) use of antibiotics; Z79.891 Long term (current) use of opiate analgesic; Z88.0 Allergy status to penicillin
CPT/HCPCS: 36415; 80053; 81003; 85025; 87491; 96372; 99283; J1885

== ENCOUNTER 2022-06-12 00:27 | Emergency (ER) | payer OTHER, MEDICAID ==
[~2022-06-12] VITALS: Ht 177.8 cm; Wt 84.8 kg
[~2022-06-12 00:27] MED LIST changes: +CYCL-711 PO; +DICL100G5 TP
[2022-06-12 00:30] VITALS: BP 136/83
--- NOTE | 2022-06-12 00:33 | NUR ---
TO BED AMBULATORY
--- NOTE | 2022-06-12 00:57 | NUR ---
Dr. Nobles examining patient.
--- NOTE | 2022-06-12 00:59 | NUR ---
DR DOOLEY AT BEDSIDE.
--- NOTE | 2022-06-12 00:59 | NUR ---
61 Y/O M BIB SELF C/O CHEST PAIN 910 STARTED LAST NIGHT AND ALL DAY TODAY. PT ALSO C/O OF NECK, HEAD AND GENERAL BODY PAIN. ALLERGIES: PENICILLIN PMH: STOMACH ULCER
[2022-06-12] MEDS ORDERED: ALUMINUM HYD/MAG/SIMETHICONE 30 ML UDC PO ONE (01:05)
[2022-06-12] MEDS ORDERED: ACETAMINOPHEN EXTRA STRENGTH 500 MG TAB PO ONE (01:05)
[2022-06-12] MEDS ORDERED: FAMOTIDINE 20 MG TAB PO ONE (01:05)
[2022-06-12 01:19] LABS: BASOPHILS # (AUTO) 0.1 K/uL (0.00-0.22); BASOPHILS % (AUTO) 0.8 % (0.0-2.0); EOSINOPHILS # (AUTO) 0.1 K/uL (0-0.4); HEMATOCRIT 38.4 % (36-52); HEMOGLOBIN 12.9 g/dL (12.0-18.0); LYMPHOCYTES # (AUTO) 1.7 K/uL (2.0-11.5); LYMPHOCYTES % (AUTO) 25.7 % (20.5-51.1); MEAN CORPUSCULAR HEMOGLOBIN 31 pg (27-31); MEAN CORPUSCULAR HGB CONC 34 g/dL (33-37); MEAN CORPUSCULAR VOLUME 92.7 fL (80-94); MONOCYTES # (AUTO) 0.8 K/uL (0.8-1.0); MONOCYTES % (AUTO) 12.2 % (1.7-9.3); NEUTROPHILS # (AUTO) 3.9 K/uL (1.8-7.7); NEUTROPHILS % (AUTO) 60.3 % (42.2-75.2); PLATELET COUNT (AUTO) 183 K/uL (140-450); RED BLOOD CELL COUNT(AUTO) 4.15 MIL/uL (4.20-6.10); RED CELL DISTRIBUTION WIDTH 14.1 % (11.6-13.7); WHITE BLOOD COUNT (AUTO) 6.5 K/uL (4.8-10.8)
--- NOTE | 2022-06-12 01:23 | NUR ---
X-Ray at bedside.
--- NOTE | 2022-06-12 01:24 | NUR ---
X-RAY AT BEDSIDE.
[2022-06-12 01:40] LABS: ALBUMIN 3.4 g/dL (3.4-5.0); ANION GAP 13.3 (8-16); ASPARTATE AMINOTRANSFERASE 22 U/L (15-37); CARBON DIOXIDE 28.5 mmol/L (21-32); CHLORIDE 103 mmol/L (98-107); CREATININE 1.4 mg/dL (0.6-1.3); GFR ARICAN-AMERICAN 66 mL/min (>90); GLUCOSE 93 mg/dL (74-106); POTASSIUM 3.8 mmol/L (3.5-5.1); SODIUM SERUM 141 mmol/L (136-145); TOTAL BILIRUBIN 0.6 mg/dL (0.0-1.0); UREA NITROGEN, BLOOD 14 mg/dL (7-18)
[2022-06-12] MEDS ORDERED: ACET-10509 PO (03:01)
[2022-06-12] MEDS ORDERED: METH-1681 PO (03:01)
[2022-06-12 03:07] VITALS: BP 119/54
--- NOTE | 2022-06-12 03:08 | NUR ---
Patient discharged with v/s stable. Written and verbal after care instructions given and explained. Patient alert, oriented and verbalized understanding of instructions. Ambulatory with steady gait. All questions addressed prior to discharge. ID band removed. Patient advised to follow up with PMD. Rx of ACETAMINOPHEN TAB, METHOCARBAMOL given. Opportunity to ask questions provided and answered.
--- NOTE | 2022-06-12 03:27 | NUR ---
The patient's care was reviewed and supervised by Amie Seals RN, RN.
== END 2022-06-12 03:08 | disposition home or self-care (01) ==
LOC: MED 00:27
DX: J02.8 Acute pharyngitis due to other specified organisms (principal); Z20.822 Contact with and (suspected) exposure to COVID-19; R07.9 Chest pain, unspecified; K21.9 Gastro-esophageal reflux disease without esophagitis; Z88.0 Allergy status to penicillin
CPT/HCPCS: 36415; 71045; 80053; 81002; 82550; 84484; 85025; 87426; 87804; 93005; 99285; Q0092

== ENCOUNTER 2022-07-16 23:18 | Emergency (ER) | payer OTHER, MEDICAID ==
[~2022-07-16] VITALS: Ht 177.8 cm; Wt 84.8 kg
[~2022-07-16 23:18] MED LIST changes: +METH-1681 PO
[2022-07-17 00:51] VITALS: BP 124/64
--- NOTE | 2022-07-17 02:02 | NUR ---
LAB WITH PT IN [facility]
--- NOTE | 2022-07-17 02:03 | NUR ---
PATIENT AMBULATED TO . URINE COLLECTED.
[2022-07-17 02:19] LABS: APPEARANCE,URINE CLEAR (CLEAR); BASOPHILS # (AUTO) 0.1 K/uL (0.00-0.22); BASOPHILS % (AUTO) 0.9 % (0.0-2.0); BILIRUBIN,URINE NEGATIVE (NEGATIVE); BLOOD, URINE NEGATIVE (NEGATIVE); COLOR,URINE YELLOW (YELLOW); EOSINOPHILS # (AUTO) 0.2 K/uL (0-0.4); EOSINOPHILS % (AUTO) 2.8 % (0.0-4.0); HEMATOCRIT 38.4 % (36-52); HEMOGLOBIN 12.2 g/dL (12.0-18.0); LEUKOCYTE ESTERASE ,URINE NEGATIVE (NEGATIVE); LYMPHOCYTES % (AUTO) 31.8 % (20.5-51.1); MEAN CORPUSCULAR HEMOGLOBIN 30 pg (27-31); MEAN CORPUSCULAR HGB CONC 32 g/dL (33-37); MEAN CORPUSCULAR VOLUME 93.9 fL (80-94); MONOCYTES # (AUTO) 0.8 K/uL (0.8-1.0); MONOCYTES % (AUTO) 12.5 % (1.7-9.3); NEUTROPHILS # (AUTO) 3.3 K/uL (1.8-7.7); NITRITE, URINE NEGATIVE (NEGATIVE); PLATELET COUNT (AUTO) 192 K/uL (140-450); RED BLOOD CELL COUNT(AUTO) 4.09 MIL/uL (4.20-6.10); RED CELL DISTRIBUTION WIDTH 13.6 % (11.6-13.7); UGLUCOSE NEGATIVE (NEGATIVE); WHITE BLOOD COUNT (AUTO) 6.4 K/uL (4.8-10.8)
[2022-07-17] MEDS ORDERED: KETOROLAC 15 MG/ML VIAL IM ONE (03:10)
[2022-07-17] MEDS ORDERED: LIDOCAINE 5% 1 EA PATCH TP ONE (03:10)
--- NOTE | 2022-07-17 03:10 | NUR ---
PATIENT TO CHA. LAINEZ ASSESSING PATIENT
[2022-07-17 03:19] LABS: ALBUMIN 3.3 g/dL (3.4-5.0); ANION GAP 10.9 (8-16); CARBON DIOXIDE 31.5 mmol/L (21-32); CREATININE 1.3 mg/dL (0.6-1.3); POTASSIUM 4.4 mmol/L (3.5-5.1); TOTAL BILIRUBIN 0.4 mg/dL (0.0-1.0)
--- NOTE | 2022-07-17 03:28 | NUR ---
MEDICATION GIVEN PER MD ORDERS. TOLERATED WELL. NADR
[2022-07-17] MEDS ORDERED: IBUP-2213 PO (03:29)
[2022-07-17] MEDS ORDERED: LID5T TP (03:29)
[2022-07-17] MEDS ORDERED: DOXY-690 PO (03:38)
[2022-07-17] MEDS ORDERED: LIDOCAINE MPF 1% 5 ML ONE (03:39)
[2022-07-17] MEDS ORDERED: cefTRIAXone 500 MG VIAL ONE (03:39)
[2022-07-17] MEDS ORDERED: cefTRIAXone 500 MG in LIDOCAINE MPF 1% 1 ML IM ONE (03:40)
[2022-07-17 04:04] VITALS: BP 124/64
--- NOTE | 2022-07-17 04:04 | NUR ---
Patient discharged with v/s stable. Written and verbal after care instructions given and explained. Patient alert, oriented and verbalized understanding of instructions. Ambulatory with steady gait. All questions addressed prior to discharge. ID band removed. Patient advised to follow up with PMD. Rx of DOXYCYCLINE, IBUPROFEN, AND LIDOCAINE PATCH given. Patient educated on indication of medication including possible reaction and side effects. Opportunity to ask questions provided and answered.
== END 2022-07-17 04:04 | disposition home or self-care (01) ==
LOC: MED 23:18
DX: S46.912A Strain of unspecified muscle, fascia and tendon at shoulder and upper arm level, left arm, initial encounter (principal); K21.9 Gastro-esophageal reflux disease without esophagitis; Z88.0 Allergy status to penicillin; X58.XXXA Exposure to other specified factors, initial encounter; Y93.89 Activity, other specified; Y92.89 Other specified places as the place of occurrence of the external cause; Y99.8 Other external cause status
CPT/HCPCS: 36415; 80053; 81003; 85025; 87491; 96372; 99284; J0696; J1885; J2001

== ENCOUNTER 2022-07-22 17:28 | Emergency (ER) | payer OTHER, MEDICAID ==
[~2022-07-22] VITALS: Ht 175.3 cm; Wt 74.8 kg
[~2022-07-22 17:28] MED LIST changes: +DOXY-690 PO; +LID5T TP
--- NOTE | 2022-07-22 17:49 | NUR ---
PT AMBULATED TO ER BED 8
--- NOTE | 2022-07-22 17:50 | NUR ---
61YO MALE PT C/O SHARP 10/10 R RIB AND SHOULDER PAIN x<1HR. STATES FALLING FROM 1 STORY ROOF WHILE ATTEMPTING TO FIX LEAK -LOC -HEAD INJURY. NO VISIBLE INJURIES NOTED , TENDER TO TOUCH -NUMBING -LOSS OF SENSATION. LIMITED ROM DUE TO PAIN, CAP REFILL <4. CLEAR ANÍBAL LUNG SOUNDS. DENIES N/V/D, FEVER OR CHILLS. PT AAOX4, HOB POSITIONED PER COMFORT. HX: GASTRITIS NKA
[2022-07-22 17:52] VITALS: BP 117/80
--- NOTE | 2022-07-22 17:53 | NUR ---
MD ARAUJO AT BEDSIDE FOR EVALUATION
[2022-07-22] MEDS ORDERED: MORPHINE SULFATE 2 MG/ML SYR IVP STA (18:04)
[2022-07-22] MEDS ORDERED: ONDANSETRON 4 MG/2 ML VIAL ONE (18:35)
[2022-07-22] MEDS ORDERED: ONDANSETRON 4 MG/2 ML VIAL IVP ONE (18:35)
--- NOTE | 2022-07-22 19:24 | NUR ---
REPORT GIVEN TO JAKE ORELLANA. TRANSFER OF CARE AT THIS TIME
[2022-07-22 19:28] LABS: BASOPHILS % (AUTO) 0.6 % (0.0-2.0); EOSINOPHILS % (AUTO) 1.1 % (0.0-4.0); HEMOGLOBIN 11.8 g/dL (12.0-18.0); LYMPHOCYTES # (AUTO) 1.4 K/uL (2.0-11.5); LYMPHOCYTES % (AUTO) 33.3 % (20.5-51.1); MEAN CORPUSCULAR HEMOGLOBIN 30 pg (27-31); MEAN CORPUSCULAR HGB CONC 33 g/dL (33-37); MEAN CORPUSCULAR VOLUME 92.6 fL (80-94); MONOCYTES # (AUTO) 0.6 K/uL (0.8-1.0); MONOCYTES % (AUTO) 13.1 % (1.7-9.3); NEUTROPHILS # (AUTO) 2.2 K/uL (1.8-7.7); NEUTROPHILS % (AUTO) 51.9 % (42.2-75.2); PLATELET COUNT (AUTO) 208 K/uL (140-450); RED BLOOD CELL COUNT(AUTO) 3.89 MIL/uL (4.20-6.10); RED CELL DISTRIBUTION WIDTH 13.6 % (11.6-13.7); WHITE BLOOD COUNT (AUTO) 4.3 K/uL (4.8-10.8)
[2022-07-22 19:52] LABS: ALBUMIN 3.1 g/dL (3.4-5.0); ANION GAP 11.2 (8-16); CARBON DIOXIDE 27.5 mmol/L (21-32); CREATININE 1.3 mg/dL (0.6-1.3); POTASSIUM 3.7 mmol/L (3.5-5.1); TOTAL BILIRUBIN 0.5 mg/dL (0.0-1.0)
--- NOTE | 2022-07-22 19:52 | NUR ---
PT BACK FROM CT
--- NOTE | 2022-07-22 20:29 | NUR ---
PT RESTING IN BED ON BEDSIDE ACID FILLER. DENIES CP OR SOB. PT ON 6L NON BREATHER TOLERATING WELL SP02 100% . SKIN WARM AND DRY. PT IS A ADMIT TO TELE AND HOLDING IN ER. PT DOES HAVE A PNEUMOTHROAX R SIDE. PENDING POSSIBLE CHEST TUBE PLACEMENT. HEAD ELEVATED SIDE RAILS UP X2. BED AT LOWEST POSITION PCN
[2022-07-22] MEDS ORDERED: CYCL-711 PO (20:59)
[2022-07-22] MEDS ORDERED: IBUP-1842 PO (20:59)
[2022-07-22] MEDS ORDERED: LID5T TP (20:59)
[2022-07-22] MEDS ORDERED: LIDOCAINE 5% 1 EA PATCH TP ONE (21:15)
[2022-07-22 21:30] VITALS: BP 125/73
--- NOTE | 2022-07-22 21:30 | NUR ---
Patient discharged with v/s stable. Written and verbal after care instructions given and explained. Patient alert, oriented and verbalized understanding of instructions. Ambulatory with steady gait. All questions addressed prior to discharge. ID band removed. Patient advised to follow up with PMD. Rx of FLEXERIL MOTRIN LIDODERM given.
--- NOTE | 2022-07-22 21:40 | NUR ---
The patient's care was reviewed and supervised by Janell Hernández RN.
[2022-07-23] MEDS ORDERED: LIDOCAINE 5% 1 EA PATCH TP SCH (09:00)
== END 2022-07-22 21:30 | disposition home or self-care (01) ==
LOC: MED 17:28
DX: S20.212A Contusion of left front wall of thorax, initial encounter (principal); K21.9 Gastro-esophageal reflux disease without esophagitis; Z88.0 Allergy status to penicillin; W18.30XA Fall on same level, unspecified, initial encounter; Y93.89 Activity, other specified; Y92.89 Other specified places as the place of occurrence of the external cause; Y99.8 Other external cause status
CPT/HCPCS: 36415; 71275; 74174; 80053; 85025; 96374; 96375; 99285; J2270; J2405; Q9967

== ENCOUNTER 2022-08-19 01:32 | Emergency (ER) | payer OTHER, MEDICAID ==
[~2022-08-19] VITALS: Ht 177.8 cm; Wt 83.9 kg
[~2022-08-19 01:32] MED LIST changes: -ACET-8386 PO; +ACET-8905 PO; +IBUP-1842 PO
[2022-08-19 01:40] VITALS: BP 141/86
--- NOTE | 2022-08-19 01:42 | NUR ---
Stat EKG in triage.
--- NOTE | 2022-08-19 02:28 | NUR ---
Dr. Grigsby examining patient.
[2022-08-19] MEDS ORDERED: LORazepam 0.5 MG TAB PO ONE (02:45)
--- NOTE | 2022-08-19 02:58 | NUR ---
Blood for labwork drawn by garbage stoker. Patient tolerated well.
[2022-08-19 03:09] LABS: BASOPHILS # (AUTO) 0.1 K/uL (0.00-0.22); BASOPHILS % (AUTO) 0.8 % (0.0-2.0); EOSINOPHILS # (AUTO) 0.2 K/uL (0-0.4); EOSINOPHILS % (AUTO) 2.1 % (0.0-4.0); HEMATOCRIT 39.2 % (36-52); LYMPHOCYTES # (AUTO) 2.1 K/uL (2.0-11.5); LYMPHOCYTES % (AUTO) 27.3 % (20.5-51.1); MEAN CORPUSCULAR HEMOGLOBIN 31 pg (27-31); MEAN CORPUSCULAR HGB CONC 33 g/dL (33-37); MEAN CORPUSCULAR VOLUME 93.4 fL (80-94); MONOCYTES % (AUTO) 12.3 % (1.7-9.3); NEUTROPHILS # (AUTO) 4.5 K/uL (1.8-7.7); NEUTROPHILS % (AUTO) 57.5 % (42.2-75.2); PLATELET COUNT (AUTO) 201 K/uL (140-450); RED CELL DISTRIBUTION WIDTH 14.4 % (11.6-13.7); WHITE BLOOD COUNT (AUTO) 7.7 K/uL (4.8-10.8)
[2022-08-19 03:23] LABS: ANION GAP 11.1 (8-16); CARBON DIOXIDE 30.1 mmol/L (21-32); CREATININE 1.3 mg/dL (0.6-1.3); POTASSIUM 4.2 mmol/L (3.5-5.1)
[2022-08-19 04:25] VITALS: BP 132/86
--- NOTE | 2022-08-19 04:25 | NUR ---
Patient discharged with v/s stable. Written and verbal after care instructions given and explained. Patient verbalized understanding. Ambulatory with steady gait. All questions addressed prior to discharge. Advised to follow up with PMD.
== END 2022-08-19 04:25 | disposition home or self-care (01) ==
LOC: MED 01:32
DX: F41.9 Anxiety disorder, unspecified (principal); G47.00 Insomnia, unspecified; K21.9 Gastro-esophageal reflux disease without esophagitis; Z88.0 Allergy status to penicillin
CPT/HCPCS: 36415; 80048; 85025; 99283

== ENCOUNTER 2022-09-03 13:34 | Emergency (ER) | payer OTHER, MEDICAID ==
[~2022-09-03] VITALS: Ht 177.8 cm; Wt 79.8 kg
[2022-09-03 13:38] VITALS: BP 131/87
--- NOTE | 2022-09-03 13:45 | NUR ---
61M presents to ED with c/o LLQ ABD pain, N/V/D and chest pain for weeks. Pt unable to recall how long he has had symptoms. Pt reports being seen in Urgent Care about 3 weeks ago for symptoms and was Rx Zofran and Dicyclomine with no relief. Pt reports nausea with no episodes of vomiting today and 2 episodes of diarrhea today. Pt reports pain radiates intermittently from LLQ ABD to chest. Pt changed into gown, placed on bedside monitor, side rails up x1.
[2022-09-03 14:11] LABS: BASOPHILS % (AUTO) 1.1 % (0.0-2.0); EOSINOPHILS # (AUTO) 0.1 K/uL (0-0.4); EOSINOPHILS % (AUTO) 1.4 % (0.0-4.0); LYMPHOCYTES # (AUTO) 1.5 K/uL (2.0-11.5); LYMPHOCYTES % (AUTO) 32.1 % (20.5-51.1); MEAN CORPUSCULAR HEMOGLOBIN 30 pg (27-31); MEAN CORPUSCULAR HGB CONC 33 g/dL (33-37); MEAN CORPUSCULAR VOLUME 91.1 fL (80-94); MONOCYTES # (AUTO) 0.5 K/uL (0.8-1.0); MONOCYTES % (AUTO) 10.6 % (1.7-9.3); NEUTROPHILS # (AUTO) 2.5 K/uL (1.8-7.7); NEUTROPHILS % (AUTO) 54.8 % (42.2-75.2); PLATELET COUNT (AUTO) 187 K/uL (140-450); RED BLOOD CELL COUNT(AUTO) 4.28 MIL/uL (4.20-6.10); RED CELL DISTRIBUTION WIDTH 13.9 % (11.6-13.7); WHITE BLOOD COUNT (AUTO) 4.6 K/uL (4.8-10.8)
[2022-09-03] MEDS ORDERED: MORPHINE SULFATE 4 MG/ML SYR IVP ONE (14:25)
[2022-09-03] MEDS ORDERED: ONDANSETRON 4 MG/2 ML VIAL IVP ONE (14:25)
[2022-09-03 14:29] LABS: ANION GAP 11.6 (8-16); ASPARTATE AMINOTRANSFERASE 24 U/L (15-37); CARBON DIOXIDE 29.5 mmol/L (21-32); CHLORIDE 102 mmol/L (98-107); CREATININE 1.2 mg/dL (0.6-1.3); GFR ARICAN-AMERICAN 79 mL/min (>90); GLUCOSE 92 mg/dL (74-106); LIPASE 132 U/L (73-393); POTASSIUM 4.1 mmol/L (3.5-5.1); SODIUM SERUM 139 mmol/L (136-145); TOTAL BILIRUBIN 0.6 mg/dL (0.0-1.0); UREA NITROGEN, BLOOD 10 mg/dL (7-18)
[2022-09-03 16:05] LABS: APPEARANCE,URINE CLEAR (CLEAR); BILIRUBIN,URINE NEGATIVE (NEGATIVE); BLOOD, URINE NEGATIVE (NEGATIVE); COLOR,URINE YELLOW (YELLOW); LEUKOCYTE ESTERASE ,URINE NEGATIVE (NEGATIVE); NITRITE, URINE NEGATIVE (NEGATIVE); UGLUCOSE NEGATIVE (NEGATIVE)
[2022-09-03] MEDS ORDERED: ALUMINUM HYD/MAG/SIMETHICONE 30 ML UDC PO ONE (17:20)
[2022-09-03] MEDS ORDERED: FAMOTIDINE 20 MG/2 ML VIAL IVP ONE (17:20)
[2022-09-03] MEDS ORDERED: FAMO-90 PO (17:32)
[2022-09-03] MEDS ORDERED: SUCR1TAB6 PO (17:32)
[2022-09-03 17:45] VITALS: BP 112/74
--- NOTE | 2022-09-03 18:08 | NUR ---
Patient discharged with v/s stable. Written and verbal after care instructions about abdominal pain given and explained. Patient alert, oriented and verbalized understanding of instructions. Ambulatory with steady gait. All questions addressed prior to discharge. ID band removed. Patient advised to follow up with PMD. Rx of Famotidine and sucralfate given. Patient educated on indication of medication including possible reaction and side effects. Opportunity to ask questions provided and answered.
== END 2022-09-03 18:08 | disposition home or self-care (01) ==
LOC: MED 13:34
DX: K31.4 Gastric diverticulum (principal); R07.9 Chest pain, unspecified; K21.9 Gastro-esophageal reflux disease without esophagitis; Z88.0 Allergy status to penicillin
CPT/HCPCS: 36415; 71045; 74177; 80053; 81003; 83690; 84484; 85025; 93005; 96374; 96375; 99285; J2270; J2405; J3490; Q0092; Q9967

== ENCOUNTER 2022-10-04 22:04 | Emergency (ER) | payer OTHER, MEDICAID ==
[~2022-10-04 22:04] MED LIST changes: +FAMO-90 PO; +SUCR1TAB6 PO
--- NOTE | 2022-10-04 23:00 | NUR ---
CALLED TO TRIAGE, NO ANSWER
--- NOTE | 2022-10-04 23:18 | NUR ---
CALLED TO TRIAGE, NO ANSWER
--- NOTE | 2022-10-04 23:24 | NUR ---
CALLED TO TRIAGE, NO ANSWER. LWBS
[2022-10-05] MEDS ORDERED: CIPR500T9 PO (04:41)
[2022-10-05] MEDS ORDERED: ACET-8905 PO (04:41)
== END 2022-10-04 23:24 | disposition left against medical advice (07) ==
LOC: MED 22:04
DX: M79.10 Myalgia, unspecified site (principal); Z53.21 Procedure and treatment not carried out due to patient leaving prior to being seen by health care provider

== ENCOUNTER 2022-10-05 00:27 | Emergency (ER) | payer OTHER, MEDICAID ==
[~2022-10-05] VITALS: Ht 177.8 cm; Wt 81.6 kg
[2022-10-05 00:39] VITALS: BP 119/76
--- NOTE | 2022-10-05 00:45 | NUR ---
TO LOBBY FOLLOWING TRIAGE
--- NOTE | 2022-10-05 02:39 | NUR ---
Patient resting in chair, A/Ox4, chest and fall symmetrical, no s/s of distress.
--- NOTE | 2022-10-05 02:44 | NUR ---
Dr. Grigsby assessing patient.
[2022-10-05] MEDS ORDERED: KETOROLAC 30 MG/ML VIAL IM ONE (02:45)
[2022-10-05] MEDS ORDERED: HYDROcodone/APAP 5/325 MG 1 TAB TAB PO ONE (02:45)
--- NOTE | 2022-10-05 03:01 | NUR ---
PT AMB TO ER BED 08
--- NOTE | 2022-10-05 03:14 | NUR ---
Urine sent to lab
[2022-10-05 03:18] LABS: APPEARANCE,URINE CLOUDY (CLEAR); BILIRUBIN,URINE NEGATIVE (NEGATIVE); BLOOD, URINE NEGATIVE (NEGATIVE); COLOR,URINE YELLOW (YELLOW); LEUKOCYTE ESTERASE ,URINE 2+ (NEGATIVE); NITRITE, URINE NEGATIVE (NEGATIVE); UGLUCOSE NEGATIVE (NEGATIVE)
[2022-10-05 03:20] LABS: BASOPHILS # (AUTO) 0.1 K/uL (0.00-0.22); BASOPHILS % (AUTO) 1.1 % (0.0-2.0); EOSINOPHILS # (AUTO) 0.1 K/uL (0-0.4); EOSINOPHILS % (AUTO) 2.5 % (0.0-4.0); HEMATOCRIT 35.2 % (36-52); HEMOGLOBIN 11.5 g/dL (12.0-18.0); LYMPHOCYTES # (AUTO) 1.9 K/uL (2.0-11.5); LYMPHOCYTES % (AUTO) 38.3 % (20.5-51.1); MEAN CORPUSCULAR HEMOGLOBIN 30 pg (27-31); MEAN CORPUSCULAR HGB CONC 33 g/dL (33-37); MEAN CORPUSCULAR VOLUME 92.8 fL (80-94); MONOCYTES # (AUTO) 0.7 K/uL (0.8-1.0); MONOCYTES % (AUTO) 13.6 % (1.7-9.3); NEUTROPHILS # (AUTO) 2.2 K/uL (1.8-7.7); NEUTROPHILS % (AUTO) 44.5 % (42.2-75.2); PLATELET COUNT (AUTO) 194 K/uL (140-450); RED CELL DISTRIBUTION WIDTH 13.9 % (11.6-13.7)
[2022-10-05 03:23] LABS: RBC,URINE 0-5 /HPF (0-5); WBC,URINE TOO MANY TO COUNT /HPF (0-5)
[2022-10-05 03:44] LABS: ANION GAP 12.2 (8-16); CARBON DIOXIDE 28.3 mmol/L (21-32); CREATININE 1.3 mg/dL (0.6-1.3); POTASSIUM 3.5 mmol/L (3.5-5.1)
--- NOTE | 2022-10-05 04:03 | NUR ---
Dr. Grigsby by bedside.
[2022-10-05] MEDS ORDERED: CIPR500T9 PO (04:41)
[2022-10-05] MEDS ORDERED: ACET-8905 PO (04:41)
[2022-10-05 05:00] VITALS: BP 118/63
--- NOTE | 2022-10-05 05:02 | NUR ---
Patient discharged with v/s stable. Written and verbal after care instructions given and explained. New orders for norco and ciprofloxacin. Patient verbalized understanding. Ambulatory with steady gait. All questions addressed prior to discharge. Advised to follow up with PMD.
== END 2022-10-05 04:56 | disposition home or self-care (01) ==
LOC: MED 00:27
DX: M79.661 Pain in right lower leg (principal); N39.0 Urinary tract infection, site not specified; K21.9 Gastro-esophageal reflux disease without esophagitis; Z88.0 Allergy status to penicillin
CPT/HCPCS: 36415; 80048; 81001; 85025; 87086; 96372; 99283; J1885

== ENCOUNTER 2022-10-08 23:07 | Emergency (ER) | payer OTHER, MEDICAID ==
[~2022-10-08] VITALS: Ht 177.8 cm; Wt 81.2 kg
[~2022-10-08 23:07] MED LIST changes: +CIPR500T9 PO
[2022-10-09 00:01] VITALS: BP 141/77
--- NOTE | 2022-10-09 00:07 | NUR ---
PATIENT ESCORTED BACK TO LOBBY IN STABLE CONDITION
[2022-10-09 04:15] VITALS: BP 141/77
--- NOTE | 2022-10-09 04:15 | NUR ---
PATIENT LEFT WITHOUT BEING SEEN BY DR. BELLO. NO FURTHER CARE PROVIDED FOR PATIENT.
== END 2022-10-09 04:15 | disposition left against medical advice (07) ==
LOC: MED 23:07
DX: R07.9 Chest pain, unspecified (principal); M79.10 Myalgia, unspecified site; Z53.21 Procedure and treatment not carried out due to patient leaving prior to being seen by health care provider

== ENCOUNTER 2022-10-13 20:47 | Emergency (ER) | payer OTHER, MEDICAID ==
[~2022-10-13] VITALS: Ht 167.6 cm; Wt 86.2 kg
[2022-10-13 20:48] VITALS: BP 130/79
--- NOTE | 2022-10-13 20:48 | NUR ---
c/o 10/10 chest pain SOB x 1 day. hx hypertension, states allergy to penicillin
--- NOTE | 2022-10-13 22:02 | NUR ---
CALLED FOR PATIENT NO ANSWER AT THIS TIME.
--- NOTE | 2022-10-13 22:18 | NUR ---
Pt called, no response at this time
--- NOTE | 2022-10-13 22:39 | NUR ---
PATIENT LEFT WITHOUT BEING SEEN BY DR. GONZALEZ. NO FURTHER CARE PROVIDED FOR PATIENT.
--- NOTE | 2022-10-13 22:39 | NUR ---
PT CALLED NO RESPONSE
== END 2022-10-13 22:39 | disposition left against medical advice (07) ==
LOC: MED 20:47
DX: R07.9 Chest pain, unspecified (principal); Z53.21 Procedure and treatment not carried out due to patient leaving prior to being seen by health care provider

== ENCOUNTER 2023-02-26 12:22 | Emergency (ER) | payer OTHER, MEDICAID ==
[~2023-02-26] VITALS: Ht 177.8 cm; Wt 81.6 kg
[2023-02-26 12:26] VITALS: BP 133/81; PULSE 72; RESP 17; TEMP 98.7; O2SAT 99
--- NOTE | 2023-02-26 12:31 | NUR ---
pt ambulatory to bed 11.
--- NOTE | 2023-02-26 12:32 | NUR ---
PATIENT PRESENTS TO ED WITH RIGHT SIDE GROIN PAIN. PT STATES HE HAS HAD THIS PROBLEM FOR TWO DAYS. PT STATES HE WAS MOVING FURNITURE AND DELVEOPED PAIN IN THE GROIN AREA THE NEXT MORNING. PT STATES PAIN RADIATES TO LOWER BACK. PATIENT STATES PAIN OF 7/10 AT THIS TIME; . DENIES N/V/D; SKIN IS PINK/WARM/DRY; AAOX4 WITH EVEN AND STEADY GAIT; LUNGS CLEAR BL; HR EVEN AND REGULAR; PT DENIES ANY FEVER, CP, SOB, OR COUGH AT THIS TIME; VSS; PATIENT POSITIONED FOR COMFORT; HOB ELEVATED; BEDRAILS UP X2; BED DOWN. CALL LIGHT WITHN IN REACH. ER MD MADE AWARE OF PT STATUS. PMHX ULCERS
[2023-02-26 12:35] VITALS: BP 133/81; PULSE 72; RESP 17; TEMP 98.7
[2023-02-26] MEDS ORDERED: KETOROLAC 30 MG/ML VIAL IM ONE (13:10)
--- NOTE | 2023-02-26 13:18 | NUR ---
ULTRA SOUND AT BEDSIDE.
--- NOTE | 2023-02-26 13:19 | NUR ---
PT UNDRESSED INTO GOWN FOR ULTRA SOUND. PT HAS BEEN MEDICATED PER PROVIDERS ORDERS.
[2023-02-26 13:23] VITALS: O2SAT 99
[2023-02-26] MEDS ORDERED: IBUP-2213 PO (14:35)
[2023-02-26] MEDS ORDERED: SULF-59 PO (14:35)
--- NOTE | 2023-02-26 14:57 | NUR ---
The patient's care was reviewed and supervised by Eva 04 ED, RN.
[2023-02-26 15:11] LABS: APPEARANCE,URINE CLEAR (CLEAR); BILIRUBIN,URINE NEGATIVE (NEGATIVE); BLOOD, URINE NEGATIVE (NEGATIVE); COLOR,URINE YELLOW (YELLOW); LEUKOCYTE ESTERASE ,URINE TRACE (NEGATIVE); NITRITE, URINE NEGATIVE (NEGATIVE); PH,URINE 7.5 (5.0-9.0); UGLUCOSE NEGATIVE (NEGATIVE)
[2023-02-26 15:40] LABS: RBC,URINE 0-5 /HPF (0-5)
== END 2023-02-26 15:00 | disposition home or self-care (01) ==
LOC: MED 12:22
DX: N45.1 Epididymitis (principal); K21.9 Gastro-esophageal reflux disease without esophagitis; Z88.0 Allergy status to penicillin; Z79.899 Other long term (current) drug therapy
CPT/HCPCS: 76870; 81001; 87086; 87491; 96372; 99285; J1885; Q0092

== ENCOUNTER 2023-04-12 00:45 | Emergency (ER) | payer OTHER, MEDICAID ==
[~2023-04-12] VITALS: Ht 177.8 cm; Wt 84.8 kg
[~2023-04-12 00:45] MED LIST changes: +SULF-59 PO
[2023-04-12 00:50] VITALS: BP 131/75; PULSE 75; RESP 16; TEMP 97.8; O2SAT 98
[2023-04-12 01:47] LABS: BASOPHILS % (AUTO) 0.9 % (0.0-2.0); EOSINOPHILS # (AUTO) 0.1 K/uL (0-0.4); EOSINOPHILS % (AUTO) 2.7 % (0.0-4.0); HEMATOCRIT 36.7 % (36-52); HEMOGLOBIN 12.4 g/dL (12.0-18.0); LYMPHOCYTES # (AUTO) 1.4 K/uL (2.0-11.5); MEAN CORPUSCULAR HEMOGLOBIN 32 pg (27-31); MEAN CORPUSCULAR HGB CONC 34 g/dL (33-37); MONOCYTES # (AUTO) 0.7 K/uL (0.8-1.0); MONOCYTES % (AUTO) 14.6 % (1.7-9.3); NEUTROPHILS # (AUTO) 2.8 K/uL (1.8-7.7); NEUTROPHILS % (AUTO) 54.8 % (42.2-75.2); PLATELET COUNT (AUTO) 175 K/uL (140-450); RED BLOOD CELL COUNT(AUTO) 3.87 MIL/uL (4.20-6.10); RED CELL DISTRIBUTION WIDTH 13.7 % (11.6-13.7); WHITE BLOOD COUNT (AUTO) 5.1 K/uL (4.8-10.8)
[2023-04-12] MEDS ORDERED: ACETAMINOPHEN EXTRA STRENGTH 500 MG TAB PO ONE (02:05)
[2023-04-12] MEDS ORDERED: LIDOCAINE 5% 1 EA PATCH TP ONE (02:05)
[2023-04-12 02:16] LABS: ANION GAP 10.4 (8-16); CARBON DIOXIDE 29.3 mmol/L (21-32); POTASSIUM 3.7 mmol/L (3.5-5.1)
[2023-04-12 02:17] LABS: CALCIUM 8.1 mg/dL (8.5-10.1); CREATININE 1.6 mg/dL (0.6-1.3)
[2023-04-12 02:18] LABS: TOTAL BILIRUBIN 0.5 mg/dL (0.0-1.0); TOTAL PROTEIN, SERUM 6.1 g/dL (6.4-8.2)
[2023-04-12 02:19] LABS: ALBUMIN 3.2 g/dL (3.4-5.0)
[2023-04-12 02:31] LABS: APPEARANCE,URINE CLEAR (CLEAR); BILIRUBIN,URINE NEGATIVE (NEGATIVE); BLOOD, URINE NEGATIVE (NEGATIVE); COLOR,URINE YELLOW (YELLOW); LEUKOCYTE ESTERASE ,URINE TRACE (NEGATIVE); NITRITE, URINE NEGATIVE (NEGATIVE); PROTEIN,URINE TRACE (NEGATIVE); UGLUCOSE NEGATIVE (NEGATIVE)
[2023-04-12 02:38] LABS: BACTERIA,URINE >30 (MANY) /HPF (None Seen); RBC,URINE 0-5 /HPF (0-5); WBC,URINE TOO MANY TO COUNT /HPF (0-5)
[2023-04-12 02:39] LABS: MUCUS,URINE 1+ /LPF (None Seen); SQUAMOUS EPITHELIAL CELL,UR 0-3 (FEW) /LPF (0-3 (FEW))
[2023-04-12] MEDS ORDERED: SULFAMETH/TRIMETH DS 800/160MG 1 TAB PO ONE (03:55)
[2023-04-12] MEDS ORDERED: ACET-10509 PO (03:56)
[2023-04-12] MEDS ORDERED: SULF-59 PO (03:56)
[2023-04-12] MEDS ORDERED: LID5T TP (03:56)
[2023-04-12 04:12] VITALS: BP 131/75; PULSE 75; RESP 16; TEMP 97.8; O2SAT 98
== END 2023-04-12 04:12 | disposition home or self-care (01) ==
LOC: MED 00:45
DX: R10.9 Unspecified abdominal pain (principal); R07.89 Other chest pain; N39.0 Urinary tract infection, site not specified; R11.2 Nausea with vomiting, unspecified; K21.9 Gastro-esophageal reflux disease without esophagitis; Z88.0 Allergy status to penicillin; Z79.899 Other long term (current) drug therapy
CPT/HCPCS: 36415; 71045; 80053; 81001; 85025; 99284

== ENCOUNTER 2023-05-19 13:56 | Emergency (ER) | payer OTHER, MEDICAID ==
[~2023-05-19] VITALS: Ht 177.8 cm; Wt 81.6 kg
[~2023-05-19 13:56] MED LIST changes: +DICL100G32 TP; -DICL100G5 TP
[2023-05-19 14:03] VITALS: BP 130/81; PULSE 85; RESP 14; TEMP 97.6; O2SAT 97
[2023-05-19 15:15] LABS: BASOPHILS % (AUTO) 0.5 % (0.0-2.0); HEMATOCRIT 39.1 % (36-52); HEMOGLOBIN 12.7 g/dL (12.0-18.0); LYMPHOCYTES % (AUTO) 23.9 % (20.5-51.1); MEAN CORPUSCULAR HEMOGLOBIN 31 pg (27-31); MEAN CORPUSCULAR HGB CONC 33 g/dL (33-37); MEAN CORPUSCULAR VOLUME 93.4 fL (80-94); MONOCYTES # (AUTO) 0.5 K/uL (0.8-1.0); NEUTROPHILS # (AUTO) 2.7 K/uL (1.8-7.7); NEUTROPHILS % (AUTO) 62.6 % (42.2-75.2); PLATELET COUNT (AUTO) 173 K/uL (140-450); RED BLOOD CELL COUNT(AUTO) 4.18 MIL/uL (4.20-6.10); RED CELL DISTRIBUTION WIDTH 13.3 % (11.6-13.7); WHITE BLOOD COUNT (AUTO) 4.3 K/uL (4.8-10.8)
[2023-05-19 15:49] LABS: ALANINE AMINOTRANSFERASE 19 U/L (12-78); ALBUMIN 3.5 g/dL (3.4-5.0); ALKALINE PHOSPHATASE 85 U/L (50-136); ASPARTATE AMINOTRANSFERASE 17 U/L (15-37); CALCIUM 8.7 mg/dL (8.5-10.1); CARBON DIOXIDE 28.4 mmol/L (21-32); CHLORIDE 102 mmol/L (98-107); CREATININE 1.2 mg/dL (0.6-1.3); GFR ARICAN-AMERICAN 79 mL/min (>90); GFR NON ARICAN-AMERICAN 65 mL/min (>90); GLUCOSE 90 mg/dL (74-106); POTASSIUM 3.4 mmol/L (3.5-5.1); SODIUM SERUM 139 mmol/L (136-145); TOTAL BILIRUBIN 0.7 mg/dL (0.0-1.0); TOTAL PROTEIN, SERUM 6.6 g/dL (6.4-8.2); UREA NITROGEN, BLOOD 12 mg/dL (7-18)
[2023-05-19] MEDS ORDERED: FAMOTIDINE 20 MG TAB PO ONE (15:55)
[2023-05-19] MEDS ORDERED: KETOROLAC 30 MG/ML VIAL IM ONE (15:55)
[2023-05-19] MEDS ORDERED: NAPR-1704 PO (16:00)
[2023-05-19 16:51] VITALS: BP 124/79; PULSE 71; RESP 18; TEMP 97.8; O2SAT 97
== END 2023-05-19 16:51 | disposition home or self-care (01) ==
LOC: MED 13:56
DX: R07.89 Other chest pain (principal); R19.7 Diarrhea, unspecified; K21.9 Gastro-esophageal reflux disease without esophagitis; Z88.0 Allergy status to penicillin; Z79.899 Other long term (current) drug therapy
CPT/HCPCS: 36415; 71045; 80053; 84484; 85025; 93005; 96372; 99285; J1885; Q0092

== ENCOUNTER 2023-06-10 12:29 | Emergency (ER) | payer OTHER, MEDICAID ==
[~2023-06-10] VITALS: Ht 177.8 cm; Wt 74.8 kg
[~2023-06-10 12:29] MED LIST changes: +NAPR-1704 PO
[2023-06-10 12:53] VITALS: BP 125/70; PULSE 77; RESP 16; TEMP 97.7; O2SAT 97
[2023-06-10 14:57] LABS: BASOPHILS % (AUTO) 0.8 % (0.0-2.0); EOSINOPHILS # (AUTO) 0.1 K/uL (0-0.4); EOSINOPHILS % (AUTO) 1.3 % (0.0-4.0); HEMATOCRIT 36.1 % (36-52); HEMOGLOBIN 11.8 g/dL (12.0-18.0); LYMPHOCYTES % (AUTO) 22.2 % (20.5-51.1); MEAN CORPUSCULAR HEMOGLOBIN 30 pg (27-31); MEAN CORPUSCULAR HGB CONC 33 g/dL (33-37); MEAN CORPUSCULAR VOLUME 92.4 fL (80-94); MONOCYTES # (AUTO) 0.5 K/uL (0.8-1.0); MONOCYTES % (AUTO) 11.4 % (1.7-9.3); NEUTROPHILS % (AUTO) 64.3 % (42.2-75.2); PLATELET COUNT (AUTO) 177 K/uL (140-450); RED CELL DISTRIBUTION WIDTH 13.6 % (11.6-13.7); WHITE BLOOD COUNT (AUTO) 4.7 K/uL (4.8-10.8)
[2023-06-10] MEDS ORDERED: ONDANSETRON 4 MG ODT PO ONE (15:05)
[2023-06-10] MEDS ORDERED: DICYCLOMINE HCL LIQUID 10 MG/5 ML UDC PO ONE (15:05)
[2023-06-10 15:24] LABS: ALANINE AMINOTRANSFERASE 13 U/L (12-78); ALBUMIN 3.5 g/dL (3.4-5.0); ALKALINE PHOSPHATASE 75 U/L (50-136); ASPARTATE AMINOTRANSFERASE 18 U/L (15-37); CALCIUM 8.1 mg/dL (8.5-10.1); CARBON DIOXIDE 30.9 mmol/L (21-32); CHLORIDE 106 mmol/L (98-107); CREATININE 1.1 mg/dL (0.6-1.3); GFR ARICAN-AMERICAN 88 mL/min (>90); GFR NON ARICAN-AMERICAN 72 mL/min (>90); GLUCOSE 84 mg/dL (74-106); LIPASE 29 U/L (16-77); POTASSIUM 3.9 mmol/L (3.5-5.1); SODIUM SERUM 143 mmol/L (136-145); TOTAL BILIRUBIN 0.7 mg/dL (0.0-1.0); TOTAL PROTEIN, SERUM 6.3 g/dL (6.4-8.2); UREA NITROGEN, BLOOD 10 mg/dL (7-18)
[2023-06-10] MEDS ORDERED: ONDA-188 PO ×2 (18:23→18:41)
[2023-06-10] MEDS ORDERED: BISM262T5 PO ×2 (18:23→18:41)
[2023-06-10] MEDS ORDERED: DICY20TA19 PO ×2 (18:23→18:41)
[2023-06-10 19:02] VITALS: BP 116/72; PULSE 74; RESP 18; TEMP 98.1; O2SAT 99
== END 2023-06-10 19:02 | disposition home or self-care (01) ==
LOC: MED 12:29
DX: A08.4 Viral intestinal infection, unspecified (principal); D64.9 Anemia, unspecified; D72.819 Decreased white blood cell count, unspecified; K21.9 Gastro-esophageal reflux disease without esophagitis; Z86.69 Personal history of other diseases of the nervous system and sense organs; Z79.899 Other long term (current) drug therapy; Z79.1 Long term (current) use of non-steroidal anti-inflammatories (NSAID); Z79.2 Long term (current) use of antibiotics; Z88.0 Allergy status to penicillin
CPT/HCPCS: 36415; 80053; 83690; 84484; 85025; 93005; 99284; Q0162

== ENCOUNTER 2023-07-07 01:01 | Emergency (ER) | payer OTHER, MEDICAID ==
[~2023-07-07] VITALS: Ht 177.8 cm; Wt 77.1 kg
[~2023-07-07 01:01] MED LIST changes: +BISM262T5 PO; +DICY20TA19 PO; +ONDA-188 PO
[2023-07-07 01:10] VITALS: BP 125/59; PULSE 78; RESP 17; TEMP 97.8; O2SAT 96
[2023-07-07 02:04] LABS: BASOPHILS % (AUTO) 0.6 % (0.0-2.0); HEMATOCRIT 35.4 % (36-52); HEMOGLOBIN 11.7 g/dL (12.0-18.0); LYMPHOCYTES # (AUTO) 0.5 K/uL (2.0-11.5); LYMPHOCYTES % (AUTO) 10.2 % (20.5-51.1); MEAN CORPUSCULAR HEMOGLOBIN 31 pg (27-31); MEAN CORPUSCULAR HGB CONC 33 g/dL (33-37); MONOCYTES # (AUTO) 0.3 K/uL (0.8-1.0); NEUTROPHILS # (AUTO) 4.3 K/uL (1.8-7.7); NEUTROPHILS % (AUTO) 84.2 % (42.2-75.2); PLATELET COUNT (AUTO) 184 K/uL (140-450); RED BLOOD CELL COUNT(AUTO) 3.81 MIL/uL (4.20-6.10); RED CELL DISTRIBUTION WIDTH 14.1 % (11.6-13.7); WHITE BLOOD COUNT (AUTO) 5.1 K/uL (4.8-10.8)
[2023-07-07 02:18] LABS: ALBUMIN 3.4 g/dL (3.4-5.0); ANION GAP 12.7 (8-16); CALCIUM 8.3 mg/dL (8.5-10.1); CARBON DIOXIDE 28.3 mmol/L (21-32); CREATININE 1.3 mg/dL (0.6-1.3); TOTAL BILIRUBIN 0.3 mg/dL (0.0-1.0); TOTAL PROTEIN, SERUM 6.5 g/dL (6.4-8.2)
[2023-07-07 02:27] LABS: APPEARANCE,URINE CLEAR (CLEAR); BILIRUBIN,URINE NEGATIVE (NEGATIVE); BLOOD, URINE NEGATIVE (NEGATIVE); COLOR,URINE YELLOW (YELLOW); LEUKOCYTE ESTERASE ,URINE NEGATIVE (NEGATIVE); NITRITE, URINE NEGATIVE (NEGATIVE); PROTEIN,URINE NEGATIVE (NEGATIVE); UGLUCOSE NEGATIVE (NEGATIVE); UROBILINOGEN,URINE 0.2 EU/dL (0.2 - 1)
[2023-07-07] MEDS ORDERED: NACL 0.9% 1,000 ML IV ONE (02:45)
[2023-07-07] MEDS ORDERED: ONDANSETRON 4 MG/2 ML VIAL IVP ONE (02:45)
[2023-07-07] MEDS ORDERED: MORPHINE SULFATE 4 MG/ML SYR IVP ONE ×2 (02:45→07:30)
[2023-07-07] MEDS ORDERED: ALUM355S59 PO (05:24)
[2023-07-07] MEDS ORDERED: FAMO-92 PO (05:24)
[2023-07-07] MEDS ORDERED: LOPE-289 PO (05:29)
[2023-07-07] MEDS ORDERED: ONDA-188 SL (05:29)
[2023-07-07 12:24] VITALS: BP 118/64; PULSE 87; RESP 20; TEMP 98; O2SAT 98
[2023-07-07] MEDS ORDERED: TAMS0.4C96 PO (14:50)
== END 2023-07-07 12:24 | disposition home or self-care (01) ==
LOC: MED 01:01
DX: R10.33 Periumbilical pain (principal); R10.32 Left lower quadrant pain; R11.2 Nausea with vomiting, unspecified; R19.7 Diarrhea, unspecified; K21.9 Gastro-esophageal reflux disease without esophagitis; Z86.69 Personal history of other diseases of the nervous system and sense organs; Z79.899 Other long term (current) drug therapy; Z79.1 Long term (current) use of non-steroidal anti-inflammatories (NSAID); Z79.2 Long term (current) use of antibiotics; Z88.0 Allergy status to penicillin
CPT/HCPCS: 36415; 74176; 74177; 80053; 81003; 83690; 85025; 96361; 96374; 96375; 96376; 99285; J2270; J2405; J7030; Q9967

== ENCOUNTER 2023-07-30 00:30 | Emergency (ER) | payer OTHER, MEDICAID ==
[~2023-07-30] VITALS: Ht 177.8 cm; Wt 77.1 kg
[~2023-07-30 00:30] MED LIST changes: +ALUM355S59 PO; +FAMO-92 PO; +ONDA-188 SL; +TAMS0.4C96 PO
[2023-07-30 00:43] VITALS: BP 116/69; PULSE 74; RESP 18; TEMP 99; O2SAT 98
[2023-07-30] MEDS ORDERED: MORPHINE SULFATE 4 MG/ML SYR IM ONE (02:45)
[2023-07-30 03:03] VITALS: BP 117/64; PULSE 70; RESP 11; O2SAT 98
[2023-07-30] MEDS ORDERED: NAPR-54 PO (04:05)
== END 2023-07-30 04:14 | disposition home or self-care (01) ==
LOC: MED 00:30
DX: M79.18 Myalgia, other site (principal); K21.9 Gastro-esophageal reflux disease without esophagitis; Z86.69 Personal history of other diseases of the nervous system and sense organs; Z79.899 Other long term (current) drug therapy; Z79.1 Long term (current) use of non-steroidal anti-inflammatories (NSAID); Z79.2 Long term (current) use of antibiotics; Z88.0 Allergy status to penicillin
CPT/HCPCS: 96372; 99283; J2270

== ENCOUNTER 2023-08-01 03:04 | Emergency (ER) | payer OTHER, MEDICAID ==
[~2023-08-01] VITALS: Ht 177.8 cm; Wt 78.0 kg
[2023-08-01 03:23] VITALS: BP 130/70; PULSE 76; RESP 20; TEMP 98.2; O2SAT 97
== END 2023-08-01 05:41 | disposition left against medical advice (07) ==
LOC: MED 03:04
DX: M79.18 Myalgia, other site (principal); Z53.21 Procedure and treatment not carried out due to patient leaving prior to being seen by health care provider
CPT/HCPCS: 99281